=== PATIENT | female | born 1945 | race Caucasian/White ===

== ENCOUNTER → 2017-05-26 | Outpatient (CLI) | payer MEDICARE, OTHER ==
--- NOTE | 2017-05-27 06:35 | MR ---
EXAMINATION TYPE: MR brain wo con DATE OF EXAM: 05/26/2017 COMPARISON: NONE HISTORY: Seizure / Stroke per order. History of prior surgery and dizziness or hearing loss per patie nt. TECHNIQUE: Multiplanar, multisequence imaging of the brain and brainstem is performed without IV cont rast. FINDINGS: Diffusion weighted images demonstrate no evidence of a recent infarct or other diffusion abnormality. There is no worrisome extra-axial fluid collection. There is ventricular and sulcal prominence consis tent with diffuse cerebral atrophy. There is old area of encephalomalacia high left parietal region n ear site of artifact from suspected craniotomy surgery. There are T2 hyperintensities within the deep and more prominent in the periventricular white matter is likely on basis of product of chronic smal l vessel ischemic change. There is additional artifact left cerebellar level presumed postsurgical. Midline structures demonstrate normal morphology. The craniocervical junction appears within normal limits. T2 coronal weighted images show hippocampal gyri to appear symmetric and felt within normal limits. Normal vascular flow voids are present. The visualized sinuses are clear and the globes are i ntact. Oval 2.2 cm Lesion in the posterior right subcutaneous tissue coronal image 25 is presumed bonnie matologic in origin is only partially imaged. IMPRESSION: There is moderate diffuse cerebral atrophy and mild to moderate chronic small vessel isch emic change with left-sided surgical change and area of encephalomalacia left parietal region all farzana ntified.
== END | disposition home or self-care (01) ==
LOC: RADMRIMAIN 08:38
PROVIDERS: ATTEND Nurse Practitioner Acute Care
DX: G31.9 Degenerative disease of nervous system, unspecified (principal); I63.9 Cerebral infarction, unspecified; G93.89 Other specified disorders of brain
CPT/HCPCS: 70551

== ENCOUNTER → 2019-10-16 | Outpatient (CLI) | payer MEDICARE, OTHER | END | disposition home or self-care (01) | LOC: RADMRIMAIN 15:13 | PROVIDERS: ATTEND Nurse Practitioner Acute Care | DX: Z53.9 Procedure and treatment not carried out, unspecified reason (principal) ==

== ENCOUNTER 2020-05-05 02:19 | Inpatient (IN) | payer MEDICARE, OTHER ==
[2020-05-05] MEDS ORDERED: HYDROcodone/APAP 10-325MG 1 EACH TAB PO ONE (02:32)
--- NOTE | 2020-05-05 02:38 | ED ---
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 She is sent here from her long-term care facility after she was found to have pulse oximetry readings in the 70s. The patient had been diagnosed with covid infection. She is not usually on oxygen at baseline, they did call EMS who placed her on the nasal cannula and her saturations did improve during transport here. When I interview the patient, she denies having any dyspnea. She denies cough. She does request a pain pill for pain on her right side and states that this is chronic pain. She states that she has had pain pumps implanted in her abdomen to deal with this chronic pain but she still has breakthroughs. She denies any new pains. MD Complaint: shortness of breath -: unknown Consistency: constant Improves With: nothing Worsens With: nothing Known History Of: other (Coronavirus infection) Treatments Prior to Arrival: oxygen - Related Data Home Oxygen Therapy: No Home Medications Medication Instructions Recorded Confirmed ALPRAZolam [Xanax] 0.125 mg PO DAILY 05/05/20 05/05/20 Acetaminophen [Tylenol] 650 mg PO Q4H PRN 05/05/20 05/05/20 Aspirin 81 mg PO DAILY 05/05/20 05/05/20 Baclofen 10 mg PO TID 05/05/20 05/05/20 Carboxymethylcellulose Sodium 2 drops BOTH EYES TID 05/05/20 05/05/20 [Restore Plus] DULoxetine HCL [Cymbalta] 30 mg PO DAILY 05/05/20 05/05/20 Eucerin Lotion(Emollient) 1 applic TOPICAL DAILY PRN 05/05/20 05/05/20 Furosemide [Lasix] 20 mg PO DAILY 05/05/20 05/05/20 Gabapentin [Neurontin] 400 mg PO TID 05/05/20 05/05/20 HYDROcodone/APAP 10-325MG [[place] 1 tab PO QID 05/05/20 05/05/20 10-325] Ipratropium-Albuterol Nebulize 3 ml INHALATION RT-QID PRN 05/05/20 05/05/20 [Duoneb 0.5 mg-3 mg/3 ml Soln] Lacosamide [Vimpat] 100 mg PO BID 05/05/20 05/05/20 Menthol [Biofreeze] 1 applic TOPICAL HS 05/05/20 05/05/20 Morphine Sulfate ER [Ms Contin] 15 mg PO BID 05/05/20 05/05/20 Potassium Chloride ER [K-Dur 20] 20 meq PO DAILY 05/05/20 05/05/20 Pravastatin Sodium [Pravachol] 20 mg PO HS 05/05/20 05/05/20 Sennosides [Senna] 17.2 mg PO HS 05/05/20 05/05/20 Sodium Chloride Tab 1 gm PO BID 05/05/20 05/05/20 bisacodyL [Bisacodyl] 10 mg RECTAL Q96D PRN 05/05/20 05/05/20 levETIRAcetam [Keppra] 500 mg PO Q12H 05/05/20 05/05/20 Allergies Allergy/AdvReac Type Severity Reaction Status Date / Time No Known Allergies Allergy Verified 05/05/20 06:15 Review of Systems ROS Statement: Those systems with pertinent positive or pertinent negative responses have been documented in the HPI. ROS Other: All systems not noted in ROS Statement are negative. Limitations: ROS unobtainable due to patients medical condition (Dementia versus delirium) Constitutional: Denies: weakness Eyes: Denies: vision change Respiratory: Reports: as per HPI, dyspnea. Denies: cough Cardiovascular: Denies: chest pain, palpitations Gastrointestinal: Denies: abdominal pain, vomiting Musculoskeletal: Reports: as per HPI, myalgia. Denies: back pain Skin: Denies: rash Neurological: Reports: weakness (Chronic right hemiplegia). Denies: headache General Exam General appearance: alert, in no apparent distress Head exam: Present: atraumatic, normocephalic Eye exam: Present: normal appearance. Absent: scleral icterus, conjunctival injection ENT exam: Present: normal oropharynx Neck exam: Present: normal inspection Respiratory exam: Present: rales. Absent: respiratory distress, wheezes, rhonchi, stridor Cardiovascular Exam: Present: regular rate, normal rhythm, systolic murmur (Patient has grade 4/6 systolic ejection murmur). Absent: diastolic murmur, rubs, gallop GI/Abdominal exam: Present: soft, other (Patient has palpable pain pump in the left lower quadrant and right lower quadrant.). Absent: distended, tenderness, guarding, rebound Extremities exam: Present: normal capillary refill, other (Flexion contracture to the right upper extremity. Extension contracture to right lower extremity). Absent: pedal edema, calf tenderness Neurological exam: Present: alert, CN II-XII intact, motor sensory deficit (Right sided hemiplegia). Absent: oriented X3 Skin exam: Present: warm, dry, intact, normal color. Absent: rash Course Vital Signs 05/05/20 05/05/20 05/05/20 02:31 03:33 04:00 Temperature 98.5 F 98.7 F Pulse Rate 80 77 77 Respiratory 18 24 22 Rate Blood Pressure 97/72 87/46 95/50 O2 Sat by Pulse 98 97 97 Oximetry 05/05/20 05/05/20 05/05/20 04:10 05:00 06:00 Temperature Pulse Rate 87 69 88 Respiratory 20 22 20 Rate Blood Pressure 95/50 101/47 103/44 O2 Sat by Pulse 97 97 Oximetry Medical Decision Making - Medical Decision Making Patient is a 74-year-old woman sent from the long-term care facility after she had been found to have low pulse ox readings on room air. Her readings have improved with the cannula. Case is discussed with the MH group, covering admissions tonight. Patient started on dexamethasone and will be admitted for supplemental oxygen. The skilled nursing paperwork does include DO NOT RESUSCITATE order - Lab Data Result diagrams: 05/05/20 02:47 05/05/20 02:47 Lab Results 05/05/20 05/05/20 05/05/20 Range/Units 02:47 02:47 02:47 WBC 3.5 L (3.8-10.6) k/uL RBC 3.62 L (3.80-5.40) m/uL Hgb 11.9 (11.4-16.0) gm/dL Hct 34.3 (34.0-46.0) % MCV 94.5 (80.0-100.0) fL MCH 32.9 (25.0-35.0) pg MCHC 34.8 (31.0-37.0) g/dL RDW 12.9 (11.5-15.5) % Plt Count 142 L (150-450) k/uL MPV 7.6 Neutrophils % 70 % Lymphocytes % 22 % Monocytes % 4 % Eosinophils % 2 % Basophils % 2 % Neutrophils # 2.5 (1.3-7.7) k/uL Lymphocytes # 0.8 L (1.0-4.8) k/uL Monocytes # 0.1 (0-1.0) k/uL Eosinophils # 0.1 (0-0.7) k/uL Basophils # 0.1 (0-0.2) k/uL PT 10.2 (9.0-12.0) sec INR 1.0 (<1.2) APTT 25.6 (22.0-30.0) sec D-Dimer 0.25 (<0.60) mg/L FEU Sodium 133 L (137-145) mmol/L Potassium 4.0 (3.5-5.1) mmol/L Chloride 104 (98-107) mmol/L Carbon Dioxide 25 (22-30) mmol/L Anion Gap 4 mmol/L BUN 11 (7-17) mg/dL Creatinine 0.85 (0.52-1.04) mg/dL Est GFR (CKD-EPI)AfAm 79 (>60 ml/min/1.73 sqM) Est GFR (CKD-EPI)NonAf 68 (>60 ml/min/1.73 sqM) Glucose 91 (74-99) mg/dL Plasma Lactic Acid Sincere (0.7-2.0) mmol/L Calcium 7.8 L (8.4-10.2) mg/dL Magnesium 1.9 (1.6-2.3) mg/dL Total Bilirubin 0.4 (0.2-1.3) mg/dL AST 88 H (14-36) U/L ALT 32 (4-34) U/L Alkaline Phosphatase 79 (38-126) U/L Lactate Dehydrogenase 645 H (313-618) U/L C-Reactive Protein 48.1 H (<10.0) mg/L Total Protein 5.3 L (6.3-8.2) g/dL Albumin 2.7 L (3.5-5.0) g/dL 01/04/21 Range/Units 02:47 WBC (3.8-10.6) k/uL RBC (3.80-5.40) m/uL Hgb (11.4-16.0) gm/dL Hct (34.0-46.0) % MCV (80.0-100.0) fL MCH (25.0-35.0) pg MCHC (31.0-37.0) g/dL RDW (11.5-15.5) % Plt Count (150-450) k/uL MPV Neutrophils % % Lymphocytes % % Monocytes % % Eosinophils % % Basophils % % Neutrophils # (1.3-7.7) k/uL Lymphocytes # (1.0-4.8) k/uL Monocytes # (0-1.0) k/uL Eosinophils # (0-0.7) k/uL Basophils # (0-0.2) k/uL PT (9.0-12.0) sec INR (<1.2) APTT (22.0-30.0) sec D-Dimer (<0.60) mg/L FEU Sodium (137-145) mmol/L Potassium (3.5-5.1) mmol/L Chloride (98-107) mmol/L Carbon Dioxide (22-30) mmol/L Anion Gap mmol/L BUN (7-17) mg/dL Creatinine (0.52-1.04) mg/dL Est GFR (CKD-EPI)AfAm (>60 ml/min/1.73 sqM) Est GFR (CKD-EPI)NonAf (>60 ml/min/1.73 sqM) Glucose (74-99) mg/dL Plasma Lactic Acid Sincere 0.6 L (0.7-2.0) mmol/L Calcium (8.4-10.2) mg/dL Magnesium (1.6-2.3) mg/dL Total Bilirubin (0.2-1.3) mg/dL AST (14-36) U/L ALT (4-34) U/L Alkaline Phosphatase (38-126) U/L Lactate Dehydrogenase (313-618) U/L C-Reactive Protein (<10.0) mg/L Total Protein (6.3-8.2) g/dL Albumin (3.5-5.0) g/dL - EKG Data -: EKG Interpreted by Me EKG shows normal: sinus rhythm, axis (Normal), intervals (Normal), QRS complexes (Normal) Rate: normal (Rate 78 bpm) Interpretation: nonspecific ST-T wave changes Disposition Clinical Impression: COVID-19 virus infection Disposition: ADMITTED IP TO THIS HOSP Condition: Poor Is patient prescribed a controlled substance at d/c from ED?: No
[2020-05-05] MEDS: DEXAMETHASONE SOD PHOSPHATE 10 MG/ML 1 ML VIAL IV SCH (02:54)
[2020-05-05 02:56] LABS: Basophils # (A) 0.1 k/uL (0-0.2); Basophils % (A) 2 %; Eosinophils # (A) 0.1 k/uL (0-0.7); Eosinophils % (A) 2 %; HCT 34.3 % (34.0-46.0); HGB 11.9 gm/dL (11.4-16.0); Lymphocytes # (A) 0.8 k/uL (1.0-4.8); Lymphocytes % (A) 22 %; MCH 32.9 pg (25.0-35.0); MCHC 34.8 g/dL (31.0-37.0); MCV 94.5 fL (80.0-100.0); Mean Platelet Volume 7.6; Monocytes # (A) 0.1 k/uL (0-1.0); Monocytes % (A) 4 %; Neutrophils # (A) 2.5 k/uL (1.3-7.7); Neutrophils % (A) 70 %; Platelet Count 142 k/uL (150-450); RBC 3.62 m/uL (3.80-5.40); RDW 12.9 % (11.5-15.5); WBC 3.5 k/uL (3.8-10.6)
[2020-05-05 03:08] LABS: Albumin 2.7 g/dL (3.5-5.0); C Reactive Protein 48.1 mg/L (<10.0); Calcium 7.8 mg/dL (8.4-10.2); Magnesium 1.9 mg/dL (1.6-2.3); Total Bilirubin 0.4 mg/dL (0.2-1.3); Total Protein 5.3 g/dL (6.3-8.2)
[2020-05-05 03:11] LABS: D-Dimer 0.25 mg/L FEU (<0.60); Partial Thromboplastin Time 25.6 sec (22.0-30.0); Prothrombin Time 10.2 sec (9.0-12.0)
--- NOTE | 2020-05-05 03:21 | XR ---
EXAM: XR Chest, 1 View CLINICAL HISTORY: ITS.REASON XR Reason: Suspected COVID-19 pneumonia TECHNIQUE: Frontal view of the chest. COMPARISON: none available FINDINGS: Lungs: Hazy left upper lobe opacity. Low lung volumes. Pleural space: Unremarkable. No pneumothorax. Heart: Unremarkable. No cardiomegaly. Mediastinum: Examination is slightly limited due to rotation. Calcified aortic arch and descending thoracic aorta. Bones/joints: Unremarkable. IMPRESSION: Hazy left upper lobe opacity which may be due to pneumonia in the appropriate clinical setting. No pleural effusions or pneumothorax.
[2020-05-05] MEDS ORDERED: SODIUM CHLORIDE 0.9% 1,000 ML IV STA (04:18)
[2020-05-05] MEDS ORDERED: SODIUM CHLORIDE 0.9% 1,000 ML IV ONE (04:18)
[2020-05-05] MEDS ORDERED: NALOXONE 0.4 MG/ML 1 ML VIAL IV PRN (05:49)
[2020-05-05] MEDS ORDERED: SODIUM CHLORIDE 0.9% 1,000 ML IV SCH (06:00)
[2020-05-05] MEDS ORDERED: HEPARIN SODIUM,PORCINE 5,000 UNIT/ML 1 ML VIAL SQ SCH (09:00)
[2020-05-05] MEDS ORDERED: ACETAMINOPHEN TAB 325 MG TAB PO PRN (09:40)
[2020-05-05] MEDS ORDERED: bisacodyL 10 MG SUPP RECTAL PRN (09:40)
[2020-05-05] MEDS ORDERED: EUCERIN TOPICAL PRN (09:40)
[2020-05-05] MEDS ORDERED: FUROSEMIDE 20 MG TAB PO SCH (09:45)
[2020-05-05] MEDS: ALPRAZolam 0.25 MG TAB PO SCH (11:09)
--- NOTE | 2020-05-05 12:11 | P.HPIM ---
History of Present Illness Patient is an 74-year-old female admitted for acute hypoxic respiratory failure, secondary to covid 19, patient is a poor historian unable to tell me when she was diagnosed with the Covid. As per the patient patient symptoms has been going on for couple weeks although she is not a reliable historian patient oxygen saturation found to be in 70s was subsequently sent to ER patient was started on Decadron patient denied any shortness of breath denied any significant cough body aches. Patient doesn't have any fever patient is bit hyponatremic for started on IV fluids patient LDH is 645, d-dimer is within normal limits Review of Systems REVIEW OF SYSTEMS: CONSTITUTIONAL: No fever, no malaise, no fatigue. HEENT: No recent visual problems or hearing problems. Denied any sore throat. CARDIOVASCULAR: No chest pain, orthopnea, PND, no palpitations, no syncope. PULMONARY: No shortness of breath, no cough, no hemoptysis. GASTROINTESTINAL: No diarrhea, no nausea, no vomiting, no abdominal pain. NEUROLOGICAL: No headaches, no weakness, no numbness. HEMATOLOGICAL: Denies any bleeding or petechiae. GENITOURINARY: Denies any burning micturition, frequency, or urgency. MUSCULOSKELETAL/RHEUMATOLOGICAL: Denies any joint pain, swelling, or any muscle pain. ENDOCRINE: Denies any polyuria or polydipsia. The rest of the 14-point review of systems is negative. Past Medical History Past Medical History: CVA/TIA, Hypertension History of Any Multi-Drug Resistant Organisms: Unobtainable Past Surgical History: Unable to Obtain Past Psychological History: Unable to Obtain Smoking Status: Former smoker Past Alcohol Use History: None Reported Past Drug Use History: None Reported Medications and Allergies Home Medications Medication Instructions Recorded Confirmed Type ALPRAZolam [Xanax] 0.125 mg PO DAILY 05/05/20 05/05/20 History Acetaminophen [Tylenol] 650 mg PO Q4H PRN 05/05/20 05/05/20 History Aspirin 81 mg PO DAILY 05/05/20 05/05/20 History Baclofen 10 mg PO TID 05/05/20 05/05/20 History Carboxymethylcellulose Sodium 2 drops BOTH EYES TID 05/05/20 05/05/20 History [Restore Plus] DULoxetine HCL [Cymbalta] 30 mg PO DAILY 05/05/20 05/05/20 History Eucerin Lotion(Emollient) 1 applic TOPICAL DAILY PRN 05/05/20 05/05/20 History Furosemide [Lasix] 20 mg PO DAILY 05/05/20 05/05/20 History Gabapentin [Neurontin] 400 mg PO TID 05/05/20 05/05/20 History HYDROcodone/APAP 10-325MG [[place] 1 tab PO QID 05/05/20 05/05/20 History 10-325] Ipratropium-Albuterol Nebulize 3 ml INHALATION RT-QID PRN 05/05/20 05/05/20 History [Duoneb 0.5 mg-3 mg/3 ml Soln] Lacosamide [Vimpat] 100 mg PO BID 05/05/20 05/05/20 History Menthol [Biofreeze] 1 applic TOPICAL HS 05/05/20 05/05/20 History Morphine Sulfate ER [Ms Contin] 15 mg PO BID 05/05/20 05/05/20 History Potassium Chloride ER [K-Dur 20] 20 meq PO DAILY 05/05/20 05/05/20 History Pravastatin Sodium [Pravachol] 20 mg PO HS 05/05/20 05/05/20 History Sennosides [Senna] 17.2 mg PO HS 05/05/20 05/05/20 History Sodium Chloride Tab 1 gm PO BID 05/05/20 05/05/20 History bisacodyL [Bisacodyl] 10 mg RECTAL Q96D PRN 05/05/20 05/05/20 History levETIRAcetam [Keppra] 500 mg PO Q12H 05/05/20 05/05/20 History Allergies Allergy/AdvReac Type Severity Reaction Status Date / Time No Known Allergies Allergy Verified 05/05/20 06:15 Physical Exam Vitals: Vital Signs Temp Pulse Pulse Resp BP BP Pulse Ox 05/05/20 07:07 97.8 F 84 20 109/59 05/05/20 06:00 88 20 103/44 97 05/05/20 05:00 69 22 101/47 97 05/05/20 04:10 87 20 95/50 05/05/20 04:00 98.7 F 77 22 95/50 97 05/05/20 03:33 77 24 87/46 97 05/05/20 02:31 98.5 F 80 18 97/72 98 Intake and Output 05/04/20 05/05/20 05/05/20 22:59 06:59 14:59 Other: # Bowel Movements 1 Weight 90.718 kg 90.718 kg PHYSICAL EXAMINATION: GENERAL: The patient is alert and oriented x2-3, not in any acute distress. Well developed, well nourished. HEENT: Pupils are round and equally reacting to light. EOMI. No scleral icterus. No conjunctival pallor. Normocephalic, atraumatic. No pharyngeal erythema. No thyromegaly. CARDIOVASCULAR: S1 and S2 present. No murmurs, rubs, or gallops. PULMONARY: Chest is clear to auscultation, no wheezing or crackles. ABDOMEN: Soft, nontender, nondistended, normoactive bowel sounds. No palpable organomegaly. MUSCULOSKELETAL: No joint swelling or deformity. EXTREMITIES: No cyanosis, clubbing, or pedal edema. NEUROLOGICAL: Gross neurological examination did not reveal any new focal deficits. Does have weakness in the right side with right-sided facial droop which appears to be from her previous stroke SKIN: No rashes. Results CBC & Chem 7: 05/05/20 02:47 05/05/20 02:47 Labs: Abnormal Lab Results - Last 24 Hours (Table) 05/05/20 05/05/20 05/05/20 Range/Units 02:47 02:47 02:47 WBC 3.5 L (3.8-10.6) k/uL RBC 3.62 L (3.80-5.40) m/uL Plt Count 142 L (150-450) k/uL Lymphocytes # 0.8 L (1.0-4.8) k/uL Sodium 133 L (137-145) mmol/L Plasma Lactic Acid Sincere 0.6 L (0.7-2.0) mmol/L Calcium 7.8 L (8.4-10.2) mg/dL Ferritin 780.0 H (10.0-291.0) ng/mL AST 88 H (14-36) U/L Lactate Dehydrogenase 645 H (313-618) U/L C-Reactive Protein 48.1 H (<10.0) mg/L Total Protein 5.3 L (6.3-8.2) g/dL Albumin 2.7 L (3.5-5.0) g/dL Procalcitonin (0.02-0.09) ng/mL 05/05/20 Range/Units 02:47 WBC (3.8-10.6) k/uL RBC (3.80-5.40) m/uL Plt Count (150-450) k/uL Lymphocytes # (1.0-4.8) k/uL Sodium (137-145) mmol/L Plasma Lactic Acid Sincere (0.7-2.0) mmol/L Calcium (8.4-10.2) mg/dL Ferritin (10.0-291.0) ng/mL AST (14-36) U/L Lactate Dehydrogenase (313-618) U/L C-Reactive Protein (<10.0) mg/L Total Protein (6.3-8.2) g/dL Albumin (3.5-5.0) g/dL Procalcitonin 0.45 H (0.02-0.09) ng/mL Assessment and Plan Plan: -Acute hypoxic respiratory failure: Secondary to Covid 19, patient will be continued on Decadron, unsure whether patient will be a candidate for Remdesivir as her duration of symptoms is not clear. Although patient may be a candidate for plasma. Pulmonary will be consulted. -Hypovolemic hyponatremia: Continue with IV fluids. Hold off on Lasix. -CVA in the past: Patient does have weakness in the right side. Continue with aspirin and statin -Seizure disorder continue with Vimpat and Keppra. -Depression -DVT prophylaxis with Lovenox
--- NOTE | 2020-05-05 12:58 | P.CNPUL ---
History of Present Illness Consult date: 05/05/20 Requesting physician: Abbie Timmons Reason for consult: hypoxemia (Hypoxia) Chief complaint: Hypoxia History of present illness: 74-year-old white female patient, resident of a local long-term care facility, [facility], who is a poor historian with previous history of dementia, history of CVA, hypertension, former smoker, gait dysfunction, and patient is chronically bedbound, who was brought into the hospital on 05/05/2020 for evaluation of hypoxemia. Apparently patient was recently diagnosed with the cold infection. She had pulse oximetry readings in the 70s. EMS was called, and supplemental oxygen was placed on the patient. Patient is a poor historian, however she denies being short of breath, she denies any cough, fever or chills. She is not able to tell us alone she had not been feeling well. He is not able to tell us when she was tested for the cold infection. Chest x-ray in the emergency department showed hazy left upper lobe opacity. Her lab data showed a white blood cell, 3.5, hemoglobin of 11.9, lymphocyte, 0.8, d-dimer was negative at 0.25, INR was 1, sodium was 133, progressive electrolytes and renal profile were within normal limits, plasma lactic acid 0.6, ferritin level was 780, AST was 88, ALT was 32 alkaline phosphatase was 79, LDH 645, CRP was 48.1, pro calcitonin level was 0.45. Currently the patient is on 5 L of oxygen her pulse ox is 94%, she is resting comfortably in bed, she is able to provide simple answers, she did not know she was in the hospital, but she denies any acute distress. She is afebrile, hemodynamically patient is stable. Denies any nausea or vomiting. She was given a liter bolus in the emergency department, she has IV fluids infusing at 75 ML per hour, she was started on oral dexamethasone 6 mg IV daily, and Lovenox at prophylactic dose of 40 mg once daily Review of Systems All systems: negative Constitutional: Denies chills, Denies fever Eyes: denies blurred vision, denies pain Ears, nose, mouth and throat: Denies headache, Denies sore throat Cardiovascular: Denies chest pain, Denies shortness of breath Respiratory: Denies cough Gastrointestinal: Denies abdominal pain, Denies diarrhea, Denies nausea, Denies vomiting Genitourinary: Denies dysuria, Denies hematuria Musculoskeletal: Denies myalgias Integumentary: Denies pruritus, Denies rash Neurological: Denies numbness, Denies weakness Psychiatric: Denies anxiety, Denies depression Endocrine: Denies fatigue, Denies weight change Past Medical History Past Medical History: CVA/TIA, Hypertension History of Any Multi-Drug Resistant Organisms: Unobtainable Past Surgical History: Unable to Obtain Past Psychological History: Unable to Obtain Smoking Status: Former smoker Past Alcohol Use History: None Reported Past Drug Use History: None Reported Medications and Allergies Home Medications Medication Instructions Recorded Confirmed Type ALPRAZolam [Xanax] 0.125 mg PO DAILY 05/05/20 05/05/20 History Acetaminophen [Tylenol] 650 mg PO Q4H PRN 05/05/20 05/05/20 History Aspirin 81 mg PO DAILY 05/05/20 05/05/20 History Baclofen 10 mg PO TID 05/05/20 05/05/20 History Carboxymethylcellulose Sodium 2 drops BOTH EYES TID 05/05/20 05/05/20 History [Restore Plus] DULoxetine HCL [Cymbalta] 30 mg PO DAILY 05/05/20 05/05/20 History Eucerin Lotion(Emollient) 1 applic TOPICAL DAILY PRN 05/05/20 05/05/20 History Furosemide [Lasix] 20 mg PO DAILY 05/05/20 05/05/20 History Gabapentin [Neurontin] 400 mg PO TID 05/05/20 05/05/20 History HYDROcodone/APAP 10-325MG [[facility] 1 tab PO QID 05/05/20 05/05/20 History 10-325] Ipratropium-Albuterol Nebulize 3 ml INHALATION RT-QID PRN 05/05/20 05/05/20 History [Duoneb 0.5 mg-3 mg/3 ml Soln] Lacosamide [Vimpat] 100 mg PO BID 05/05/20 05/05/20 History Menthol [Biofreeze] 1 applic TOPICAL HS 05/05/20 05/05/20 History Morphine Sulfate ER [Ms Contin] 15 mg PO BID 05/05/20 05/05/20 History Potassium Chloride ER [K-Dur 20] 20 meq PO DAILY 05/05/20 05/05/20 History Pravastatin Sodium [Pravachol] 20 mg PO HS 05/05/20 05/05/20 History Sennosides [Senna] 17.2 mg PO HS 05/05/20 05/05/20 History Sodium Chloride Tab 1 gm PO BID 05/05/20 05/05/20 History bisacodyL [Bisacodyl] 10 mg RECTAL Q96D PRN 05/05/20 05/05/20 History levETIRAcetam [Keppra] 500 mg PO Q12H 05/05/20 05/05/20 History Allergies Allergy/AdvReac Type Severity Reaction Status Date / Time No Known Allergies Allergy Verified 05/05/20 06:15 Physical Exam Vitals: Vital Signs Temp Pulse Pulse Pulse Resp BP BP 05/05/20 08:00 97.7 F 78 18 123/72 05/05/20 07:07 97.8 F 84 20 109/59 05/05/20 06:00 88 20 103/44 05/05/20 05:00 69 22 101/47 05/05/20 04:10 87 20 95/50 05/05/20 04:00 98.7 F 77 22 95/50 05/05/20 03:33 77 24 87/46 05/05/20 02:31 98.5 F 80 18 97/72 Pulse Ox 05/05/20 08:00 94 L 05/05/20 07:07 05/05/20 06:00 97 05/05/20 05:00 97 05/05/20 04:10 05/05/20 04:00 97 05/05/20 03:33 97 05/05/20 02:31 98 Intake and Output 05/04/20 05/05/20 05/05/20 22:59 06:59 14:59 Other: # Bowel Movements 1 Weight 90.718 kg 90.718 kg GENERAL EXAM: Alert, pleasantly confused, 74-year-old white female, on 5 L of oxygen and the pulse ox 94%, resting comfortably in bed appears to be in no acute distress HEAD: Normocephalic/atraumatic. EYES: Normal reaction of pupils, equal size. Conjunctiva pink, sclera white. NOSE: Clear with pink turbinates. THROAT: No erythema or exudates. NECK: No masses, no JVD, no thyroid enlargement, no adenopathy. CHEST: No chest wall deformity. Symmetrical expansion. LUNGS: Equal air entry with no crackles, wheeze, rhonchi or dullness. CVS: Regular rate and rhythm, normal S1 and S2, no gallops, no murmurs, no rubs ABDOMEN: Soft, nontender. No hepatosplenomegaly, normal bowel sounds, no guarding or rigidity. EXTREMITIES: No clubbing, no edema, no cyanosis, 2+ pulses and upper and lower extremities. MUSCULOSKELETAL: Muscle strength and tone normal. SPINE: No scoliosis or deformity SKIN: No rashes CENTRAL NERVOUS SYSTEM: Alert and oriented -1. No focal deficits, tone is normal in all 4 extremities. PSYCHIATRIC: Alert and oriented -1. Appropriate affect. Intact judgment and insight. Results - Laboratory Findings CBC and BMP: 05/05/20 02:47 05/05/20 02:47 PT/INR, D-dimer PT 10.2 sec (9.0-12.0) 05/05/20 02:47 INR 1.0 (<1.2) 05/05/20 02:47 D-Dimer 0.25 mg/L FEU (<0.60) 05/05/20 02:47 Abnormal lab findings: Abnormal Labs 05/05/20 05/05/20 05/05/20 02:47 02:47 02:47 WBC 3.5 L RBC 3.62 L Plt Count 142 L Lymphocytes # 0.8 L Sodium 133 L Plasma Lactic Acid Sincere 0.6 L Calcium 7.8 L Ferritin 780.0 H AST 88 H Lactate Dehydrogenase 645 H C-Reactive Protein 48.1 H Total Protein 5.3 L Albumin 2.7 L Procalcitonin 05/05/20 02:47 WBC RBC Plt Count Lymphocytes # Sodium Plasma Lactic Acid Sincere Calcium Ferritin AST Lactate Dehydrogenase C-Reactive Protein Total Protein Albumin Procalcitonin 0.45 H - Diagnostic Findings Chest x-ray: report reviewed, image reviewed Additional studies: EKG reviewed Assessment and Plan Plan: Assessment: #1. Acute hypoxic respiratory failure related to COVID 19 pneumonia, the duration of her symptoms is not clear #2. Mildly elevated inflammatory markers related to COVID 19 infection #3. History of dementia #4. History of previous CVA #5. Medical debility, gait dysfunction, patient is chronically bedbound #6. [facility] #7. Hypertension #8. History of smoking, currently in remission #9. Chronic pain, patient has a pain pump inserted Plan: Continue with conservative treatment for COVID 19, duration of patient's symptoms is not clear, continue with the Decadron, continue prophylactic dose of Lovenox, we will add vitamin C, vitamin D, zinc. We'll continue to follow I performed a history & physical examination of the patient and discussed their management with my nurse practitioner, Nadja Luis. I reviewed the nurse practitioner's note and agree with the documented findings and plan of care. Lung sounds are positive for diminished breath sounds at the bases. The findings and the impression was discussed with the patient. I attest to the documentation by the nurse practitioner. Time with Patient: Greater than 30
[2020-05-05] MEDS: levETIRAcetam 500 MG TAB PO SCH ×2 (13:31→22:04)
[2020-05-05] MEDS: DULoxetine HCL 30 MG CAPSULE.DR PO SCH (13:31)
[2020-05-05] MEDS: SODIUM CHLORIDE 0.9% 1,000 ML IV SCH (13:31)
[2020-05-05] MEDS: ASPIRIN 81 MG PO SCH (13:31)
[2020-05-05] MEDS: GABAPENTIN 400 MG CAP PO SCH ×2 (16:54→22:02)
[2020-05-05] MEDS: BACLOFEN 10 MG TAB PO SCH ×2 (16:55→22:03)
[2020-05-05] MEDS: ARTIFICIAL TEARS-HYPROMELLOSE DROPS 15 ML BTL BOTH EYES SCH ×2 (17:01→22:04)
[2020-05-05] MEDS: HYDROcodone/APAP 10-325MG 1 EACH TAB PO SCH (22:02)
[2020-05-05] MEDS: ASCORBIC ACID 500 MG TAB PO SCH (22:02)
[2020-05-05] MEDS: SENNOSIDES 8.6 MG TAB PO SCH (22:03)
[2020-05-05] MEDS: LACOSAMIDE 50 MG TABLET PO SCH (22:03)
[2020-05-05] MEDS: PRAVASTATIN SODIUM 20 MG TAB PO SCH (22:04)
[2020-05-05] MEDS: SODIUM CHLORIDE TAB 1 GM TAB PO SCH (22:04)
[2020-05-05] MEDS: METHYL SALICYLATE/MENTHOL CREAM 5 OZ TOPICAL SCH (22:05)
[2020-05-06] MEDS: SODIUM CHLORIDE 0.9% 1,000 ML IV SCH ×2 (00:31→11:54)
[2020-05-06] MEDS: SODIUM CHLORIDE TAB 1 GM TAB PO SCH ×2 (07:35→21:44)
[2020-05-06] MEDS: GABAPENTIN 400 MG CAP PO SCH ×3 (07:36→21:43)
[2020-05-06] MEDS: BACLOFEN 10 MG TAB PO SCH ×3 (07:36→21:43)
[2020-05-06] MEDS: ALPRAZolam 0.25 MG TAB PO SCH (07:36)
[2020-05-06] MEDS: HYDROcodone/APAP 10-325MG 1 EACH TAB PO SCH ×2 (07:37→21:43)
[2020-05-06] MEDS: ASPIRIN 81 MG PO SCH (07:37)
[2020-05-06] MEDS: levETIRAcetam 500 MG TAB PO SCH ×2 (07:37→21:43)
[2020-05-06] MEDS: LACOSAMIDE 50 MG TABLET PO SCH ×2 (07:37→21:43)
[2020-05-06] MEDS: ENOXAPARIN 40 MG/0.4 ML SYRINGE SQ SCH (07:39)
[2020-05-06] MEDS: DEXAMETHASONE SOD PHOSPHATE 10 MG/ML 1 ML VIAL IV SCH (07:39)
[2020-05-06] MEDS: ASCORBIC ACID 500 MG TAB PO SCH ×2 (07:40→21:43)
[2020-05-06] MEDS: CHOLECALCIFEROL 400 UNIT TAB PO SCH (07:40)
[2020-05-06] MEDS: DULoxetine HCL 30 MG CAPSULE.DR PO SCH (07:40)
[2020-05-06] MEDS: ZINC SULFATE 220 MG CAP PO SCH (07:40)
[2020-05-06] MEDS: ARTIFICIAL TEARS-HYPROMELLOSE DROPS 15 ML BTL BOTH EYES SCH ×3 (07:41→21:44)
[2020-05-06] MEDS ORDERED: POTASSIUM CHLORIDE ER 20 MEQ TAB.ER PO SCH (09:00)
--- NOTE | 2020-05-06 13:41 | P.PN ---
Subjective Progress Note Date: 05/06/20 Principal diagnosis: Hypoxemia 74-year-old white female patient, resident of a local long-term care facility, [facility], who is a poor historian with previous history of dementia, history of CVA, hypertension, former smoker, gait dysfunction, and patient is chronically bedbound, who was brought into the hospital on 05/05/2020 for evaluation of hypoxemia. Apparently patient was recently diagnosed with the cold infection. She had pulse oximetry readings in the 70s. EMS was called, and supplemental oxygen was placed on the patient. Patient is a poor historian, however she denies being short of breath, she denies any cough, fever or chills. She is not able to tell us alone she had not been feeling well. He is not able to tell us when she was tested for the cold infection. Chest x-ray in the emergency department showed hazy left upper lobe opacity. Her lab data showed a white blood cell, 3.5, hemoglobin of 11.9, lymphocyte, 0.8, d-dimer was negative at 0.25, INR was 1, sodium was 133, progressive electrolytes and renal profile were within normal limits, plasma lactic acid 0.6, ferritin level was 780, AST was 88, ALT was 32 alkaline phosphatase was 79, LDH 645, CRP was 48.1, pro calcitonin level was 0.45. Currently the patient is on 5 L of oxygen her pulse ox is 94%, she is resting comfortably in bed, she is able to provide simple answers, she did not know she was in the hospital, but she denies any acute distress. She is afebrile, hemodynamically patient is stable. Denies any nausea or vomiting. She was given a liter bolus in the emergency department, she has IV fluids infusing at 75 ML per hour, she was started on oral dexamethasone 6 mg IV daily, and Lovenox at prophylactic dose of 40 mg once daily On 05/03/2020 patient seen in follow-up on medical floor, she is resting quietly in bed, she is a poor historian, she has a history of underlying dementia, but she seems to be breathing comfortably, she denies any specific complaints, she denied any shortness of breath or cough, no cognitive chest pain, she is currently on 5 L of oxygen the pulse ox of 90-92%, hemodynamically she is been stable, she's been afebrile, patient has been on IV steroids, prophylactic anticoagulation, and gentle IV hydration, and she reports feeling better, it was unclear the timeline of her symptom onset therefore patient was not a candidate for Remdesivir, she was treated conservatively with the steroids, and supplements. Doing well today Objective - Vital Signs Vital signs: Vital Signs Temp 98.3 F 05/06/20 11:00 Pulse 93 05/06/20 11:00 Resp 20 05/06/20 11:00 BP 149/82 05/06/20 11:00 Pulse Ox 90 L 05/06/20 11:00 Intake & Output 05/05/20 05/06/20 05/06/20 18:59 06:59 18:59 Intake Total 1260 360 Balance 1260 360 Weight 90.718 kg Intake: Intake, IV Titration 900 Amount Sodium Chloride 0.9% 1, 900 000 ml @ 75 mls/hr IV . [id number] [facility] Rx#:[id number] Oral 360 360 Other: Voiding Method Diaper Diaper Diaper Incontinent Incontinent Incontinent # Voids 4 3 # Bowel Movements 1 3 - Exam GENERAL EXAM: Alert, pleasantly confused, 74-year-old white female, on 5 L of oxygen and the pulse ox 94%, resting comfortably in bed appears to be in no acute distress HEAD: Normocephalic/atraumatic. EYES: Normal reaction of pupils, equal size. Conjunctiva pink, sclera white. NOSE: Clear with pink turbinates. THROAT: No erythema or exudates. NECK: No masses, no JVD, no thyroid enlargement, no adenopathy. CHEST: No chest wall deformity. Symmetrical expansion. LUNGS: Equal air entry with no crackles, wheeze, rhonchi or dullness. CVS: Regular rate and rhythm, normal S1 and S2, no gallops, no murmurs, no rubs ABDOMEN: Soft, nontender. No hepatosplenomegaly, normal bowel sounds, no guarding or rigidity. EXTREMITIES: No clubbing, no edema, no cyanosis, 2+ pulses and upper and lower extremities. MUSCULOSKELETAL: Muscle strength and tone normal. SPINE: No scoliosis or deformity SKIN: No rashes CENTRAL NERVOUS SYSTEM: Alert and oriented -1. No focal deficits, tone is normal in all 4 extremities. - Labs CBC & Chem 7: 05/05/20 02:47 05/05/20 02:47 Labs: Microbiology - Last 24 Hours (Table) 05/05/20 02:47 Blood Culture - Preliminary Blood No Growth after 24 hours 05/05/20 02:47 Blood Culture - Preliminary Blood No Growth after 24 hours Assessment and Plan Plan: Assessment: #1. Acute hypoxic respiratory failure related to COVID 19 pneumonia, the duration of her symptoms is not clear #2. Mildly elevated inflammatory markers related to COVID 19 infection #3. History of dementia #4. History of previous CVA #5. Medical debility, gait dysfunction, patient is chronically bedbound #6. Resident of the [facility] #7. Hypertension #8. History of smoking, currently in remission #9. Chronic pain, patient has a pain pump inserted Plan: Continue current medical treatment, including steroids, and vitamins, continue prophylactic anticoagulation, wean FiO2, noncompressive worsening symptoms, no complaints of dyspnea or cough, vital signs have been stable, continue to monitor the patient, follow-up chest x-ray in the morning, follow-up labs. We'll continue to follow I performed a history & physical examination of the patient and discussed their management with my nurse practitioner, Nadja Luis. I reviewed the nurse practitioner's note and agree with the documented findings and plan of care. Lung sounds are positive for diminished breath sounds at the bases. The f indings and the impression was discussed with the patient. I attest to the documentation by the nurse practitioner. Time with Patient: Less than 30
--- NOTE | 2020-05-06 16:21 | P.PN ---
Subjective Progress Note Date: 05/06/20 Patient is an 74-year-old female admitted for acute hypoxic respiratory failure, secondary to covid 19, patient is a poor historian unable to tell me when she was diagnosed with the Covid. As per the patient patient symptoms has been going on for couple weeks although she is not a reliable historian patient oxygen saturation found to be in 70s was subsequently sent to ER patient was started on Decadron patient denied any shortness of breath denied any significant cough body aches. Patient doesn't have any fever patient is bit hyponatremic for started on IV fluids patient LDH is 645, d-dimer is within normal limits 05/06/2020 Seen and evaluated and follow-up in his lethargic although arousable. She does fatigue easily. Patient states she is a resident at [facility]. Patient denies any worsening shortness of breath and is maintained on 5 L of oxygen via nasal cannula and is 90%. With nursing staff about weaning FiO2 as tolerated as patient was on 6 L earlier this morning. Patient to continue on dexamethasone along with Lovenox, zinc, vitamin supplements. Pulmonary is following as well. Will repeat a.m. labs is most recent sodium was 133, potassium is 4.0, creatinine was 0.85 and inflammatory markers were elevated. Review of systems: Constitutional: reports of fatigue Cardiovascular: No reports of chest pain or palpitations Respiratory: No reports of shortness of breath or cough GI: No reports of nausea, vomiting, or diarrhea : No reports of dysuria or retention Neurovascular: Reports generalized weakness All medications have been reviewed Objective - Vital Signs Vital signs: Vital Signs Temp 98.3 F 05/06/20 11:00 Pulse 93 05/06/20 11:00 Resp 20 05/06/20 11:00 BP 149/82 05/06/20 11:00 Pulse Ox 90 L 05/06/20 11:00 Intake & Output 05/05/20 05/06/20 05/06/20 18:59 06:59 18:59 Intake Total 1260 360 Balance 1260 360 Weight 90.718 kg Intake: Intake, IV Titration 900 Amount Sodium Chloride 0.9% 1, 900 000 ml @ 75 mls/hr IV . [id number] [facility] Rx#:[id number] Oral 360 360 Other: Voiding Method Diaper Diaper Diaper Incontinent Incontinent Incontinent # Voids 4 3 # Bowel Movements 1 3 - Exam GENERAL: The patient is alert and oriented x2-3, not in any acute distress. Well developed, well nourished. Lethargic although arousable HEENT: Pupils are round and equally reacting to light. EOMI. No scleral icterus. No conjunctival pallor. Normocephalic, atraumatic. No pharyngeal erythema. No thyromegaly. CARDIOVASCULAR: S1 and S2 present. No murmurs, rubs, or gallops. PULMONARY: Chest is clear to auscultation, no wheezing or crackles. ABDOMEN: Soft, nontender, nondistended, normoactive bowel sounds. No palpable organomegaly. MUSCULOSKELETAL: No joint swelling or deformity. EXTREMITIES: No cyanosis, clubbing, or pedal edema. NEUROLOGICAL: Gross neurological examination did not reveal any new focal deficits. Does have weakness in the right side with right-sided facial droop which appears to be from her previous stroke SKIN: No rashes. - Labs CBC & Chem 7: 05/05/20 02:47 05/05/20 02:47 Labs: Microbiology - Last 24 Hours (Table) 05/05/20 02:47 Blood Culture - Preliminary Blood No Growth after 24 hours 05/05/20 02:47 Blood Culture - Preliminary Blood No Growth after 24 hours Assessment and Plan Assessment: -Acute hypoxic respiratory failure: Secondary to Covid 19, patient will be continued on Decadron, unsure whether patient will be a candidate for Remdesivir as her duration of symptoms is not clear. Although patient may be a candidate for plasma. Pulmonary following and patient is maintained on dexamethasone along with Lovenox and vitamin C and D supplements and zinc -Hypovolemic hyponatremia: Continue with IV fluids. Hold off on Lasix. -CVA in the past: Patient does have weakness in the right side. Continue with aspirin and statin -Seizure disorder continue with Vimpat and Keppra. -Depression -DVT prophylaxis with Lovenox
[2020-05-06] MEDS: SENNOSIDES 8.6 MG TAB PO SCH (21:43)
[2020-05-06] MEDS: METHYL SALICYLATE/MENTHOL CREAM 5 OZ TOPICAL SCH (21:43)
[2020-05-06] MEDS: PRAVASTATIN SODIUM 20 MG TAB PO SCH (21:44)
[2020-05-07] MEDS: SODIUM CHLORIDE 0.9% 1,000 ML IV SCH (05:10)
[2020-05-07 06:21] LABS: Basophils % (A) 1 %; Eosinophils % (A) 0 %; HCT 39.6 % (34.0-46.0); HGB 13.3 gm/dL (11.4-16.0); Lymphocytes # (A) 0.5 k/uL (1.0-4.8); Lymphocytes % (A) 9 %; MCH 31.4 pg (25.0-35.0); MCHC 33.5 g/dL (31.0-37.0); MCV 93.7 fL (80.0-100.0); Mean Platelet Volume 7.7; Monocytes # (A) 0.3 k/uL (0-1.0); Monocytes % (A) 6 %; Neutrophils % (A) 84 %; Platelet Count 200 k/uL (150-450); RBC 4.23 m/uL (3.80-5.40); RDW 12.8 % (11.5-15.5); WBC 5.9 k/uL (3.8-10.6)
[2020-05-07] MEDS: ALPRAZolam 0.25 MG TAB PO SCH (07:45)
[2020-05-07] MEDS: ARTIFICIAL TEARS-HYPROMELLOSE DROPS 15 ML BTL BOTH EYES SCH ×2 (07:45→16:16)
[2020-05-07] MEDS: ASPIRIN 81 MG PO SCH (07:46)
[2020-05-07] MEDS: ASCORBIC ACID 500 MG TAB PO SCH ×2 (07:46→19:35)
[2020-05-07] MEDS: DEXAMETHASONE SOD PHOSPHATE 10 MG/ML 1 ML VIAL IV SCH (07:47)
[2020-05-07] MEDS: CHOLECALCIFEROL 400 UNIT TAB PO SCH (07:47)
[2020-05-07] MEDS: BACLOFEN 10 MG TAB PO SCH ×3 (07:47→20:37)
[2020-05-07] MEDS: DULoxetine HCL 30 MG CAPSULE.DR PO SCH (07:48)
[2020-05-07] MEDS: GABAPENTIN 400 MG CAP PO SCH ×3 (07:49→20:37)
[2020-05-07] MEDS: ENOXAPARIN 40 MG/0.4 ML SYRINGE SQ SCH (07:49)
[2020-05-07] MEDS: HYDROcodone/APAP 10-325MG 1 EACH TAB PO SCH ×2 (07:50→19:35)
[2020-05-07] MEDS: LACOSAMIDE 50 MG TABLET PO SCH ×2 (07:51→19:37)
[2020-05-07] MEDS: levETIRAcetam 500 MG TAB PO SCH ×2 (07:52→19:37)
[2020-05-07] MEDS: SODIUM CHLORIDE TAB 1 GM TAB PO SCH ×2 (07:52→19:35)
[2020-05-07] MEDS: ZINC SULFATE 220 MG CAP PO SCH (07:52)
--- NOTE | 2020-05-07 08:00 | XR ---
EXAMINATION TYPE: XR chest 1V portable DATE OF EXAM: 05/07/2020 COMPARISON: 05/05/2020 INDICATION: Covid 19 TECHNIQUE: Single frontal view of the chest is obtained. FINDINGS: The heart size is normal. The pulmonary vasculature is prominent. Mild diffuse increased lung markings are present. Some underlying punctate nodularity may be present. Continued follow-up is recommended. This appears stable from comparison. IMPRESSION: 1. Stable nonspecific increased lung markings. Continued follow-up is recommended.
[2020-05-07 11:10] LABS: Anion Gap 13.8 mmol/L (4.00-12.00); Calcium 8.2 mg/dL (8.7-10.3); Carbon Dioxide 19.2 mmol/L (21.6-31.8)
[2020-05-07 11:16] LABS: C Reactive Protein 5.3 mg/dL (0.0-0.8); Potassium 2.8 mmol/L (3.5-5.5)
[2020-05-07 12:16] LABS: African American GFR (CKD) 99.6 (60.0-200.0); BUN/Creat Ratio 11.43 Ratio (12.00-20.00)
--- NOTE | 2020-05-07 12:53 | P.PN ---
Subjective Progress Note Date: 05/07/20 Principal diagnosis: Hypoxemia 74-year-old white female patient, resident of a local long-term care facility, [facility], who is a poor historian with previous history of dementia, history of CVA, hypertension, former smoker, gait dysfunction, and patient is chronically bedbound, who was brought into the hospital on 05/05/2020 for evaluation of hypoxemia. Apparently patient was recently diagnosed with the cold infection. She had pulse oximetry readings in the 70s. EMS was called, and supplemental oxygen was placed on the patient. Patient is a poor historian, however she denies being short of breath, she denies any cough, fever or chills. She is not able to tell us alone she had not been feeling well. He is not able to tell us when she was tested for the cold infection. Chest x-ray in the emergency department showed hazy left upper lobe opacity. Her lab data showed a white blood cell, 3.5, hemoglobin of 11.9, lymphocyte, 0.8, d-dimer was negative at 0.25, INR was 1, sodium was 133, progressive electrolytes and renal profile were within normal limits, plasma lactic acid 0.6, ferritin level was 780, AST was 88, ALT was 32 alkaline phosphatase was 79, LDH 645, CRP was 48.1, pro calcitonin level was 0.45. Currently the patient is on 5 L of oxygen her pulse ox is 94%, she is resting comfortably in bed, she is able to provide simple answers, she did not know she was in the hospital, but she denies any acute distress. She is afebrile, hemodynamically patient is stable. Denies any nausea or vomiting. She was given a liter bolus in the emergency department, she has IV fluids infusing at 75 ML per hour, she was started on oral dexamethasone 6 mg IV daily, and Lovenox at prophylactic dose of 40 mg once daily On 05/03/2020 patient seen in follow-up on medical floor, she is resting quietly in bed, she is a poor historian, she has a history of underlying dementia, but she seems to be breathing comfortably, she denies any specific complaints, she denied any shortness of breath or cough, no cognitive chest pain, she is currently on 5 L of oxygen the pulse ox of 90-92%, hemodynamically she is been stable, she's been afebrile, patient has been on IV steroids, prophylactic anticoagulation, and gentle IV hydration, and she reports feeling better, it was unclear the timeline of her symptom onset therefore patient was not a candidate for Remdesivir, she was treated conservatively with the steroids, and supplements. Doing well today On 05/07/2020 patient seen in follow-up on medical floor, she seems to be resting comfortably in bed however her FiO2 requirements have increased overnight, and she is currently at 15 L per high flow nasal cannula and her pulse ox of 93%, she's been afebrile, hemodynamically stable, patient is a poor historian however she seems to be breathing comfortably, no significant cough, denies chest x-ray shows stable nonspecific increased lung markings. Today's labs have been reviewed showing white blood cell count of 5.9, percent, 0.5, d- dimer has increased to 1.21, sodium is 135, potassium is 2.8, chloride is 102, CO2 is 19, BUN of 8 and creatinine of 0.7. LDH and CRP have improved since admission. We'll calcitonin level was borderline at 0.45. Patient has had no fever or chills, she is currently on vitamins, oral Decadron, and prophylactic dose of Lovenox. Objective - Vital Signs Vital signs: Vital Signs Temp 98.1 F 05/07/20 11:00 Pulse 95 05/07/20 11:00 Resp 17 05/07/20 11:00 BP 134/73 05/07/20 11:00 Pulse Ox 93 L 05/07/20 11:00 Intake & Output 05/06/20 05/07/20 05/07/20 18:59 06:59 18:59 Intake Total 360 1800 Output Total 300 Balance 60 1800 Intake: Intake, IV Titration 800 Amount Sodium Chloride 0.9% 1, 800 000 ml @ 75 mls/hr IV . [id number] [facility] Rx#:[id number] Oral 360 1000 Output: Urine 300 Other: Voiding Method Diaper Diaper Incontinent Incontinent # Voids 1 2 # Bowel Movements 1 - Exam GENERAL EXAM: Alert, pleasantly confused, 74-year-old white female, on 15 L of oxygen and the pulse ox 94%, resting comfortably in bed appears to be in no acute distress HEAD: Normocephalic/atraumatic. EYES: Normal reaction of pupils, equal size. Conjunctiva pink, sclera white. NOSE: Clear with pink turbinates. THROAT: No erythema or exudates. NECK: No masses, no JVD, no thyroid enlargement, no adenopathy. CHEST: No chest wall deformity. Symmetrical expansion. LUNGS: Equal air entry with no crackles, wheeze, rhonchi or dullness. CVS: Regular rate and rhythm, normal S1 and S2, no gallops, no murmurs, no rubs ABDOMEN: Soft, nontender. No hepatosplenomegaly, normal bowel sounds, no guarding or rigidity. EXTREMITIES: No clubbing, no edema, no cyanosis, 2+ pulses and upper and lower extremities. MUSCULOSKELETAL: Muscle strength and tone normal. SPINE: No scoliosis or deformity SKIN: No rashes CENTRAL NERVOUS SYSTEM: Alert and oriented -1. No focal deficits, tone is normal in all 4 extremities. - Labs CBC & Chem 7: 05/07/20 05:42 05/07/20 05:42 Labs: Abnormal Lab Results - Last 24 Hours (Table) 05/07/20 05/07/20 05/07/20 Range/Units 05:42 05:42 05:42 Lymphocytes # 0.5 L (1.0-4.8) k/uL D-Dimer 1.21 H (<0.60) mg/L FEU Potassium 2.8 L (3.5-5.5) mmol/L Carbon Dioxide 19.2 L (21.6-31.8) mmol/L Anion Gap 13.80 H (4.00-12.00) mmol/L BUN 8.0 L (9.0-27.0) mg/dL BUN/Creatinine Ratio 11.43 L (12.00-20.00) Ratio Calcium 8.2 L (8.7-10.3) mg/dL Lactate Dehydrogenase 290 H (120-246) U/L C-Reactive Protein 5.3 H (0.0-0.8) mg/dL Microbiology - Last 24 Hours (Table) 05/05/20 02:47 Blood Culture - Preliminary Blood No Growth after 48 hours 05/05/20 02:47 Blood Culture - Preliminary Blood No Growth after 48 hours Assessment and Plan Plan: Assessment: #1. Acute hypoxic respiratory failure related to COVID 19 pneumonia, the duration of her symptoms is not clear. On 05/07/2020 patient has had worsening of her oxygenation, and she is currently requiring 15 L per high flow nasal cannula with pulse ox of 93%. Continues on oral steroids in the form of Decadron, and vitamins, she was not a candidate for Remdesivir, patient has been treated with steroids and vitamins so far #2. Mildly elevated inflammatory markers related to COVID 19 infection #3. History of dementia #4. History of previous CVA #5. Medical debility, gait dysfunction, patient is chronically bedbound #6. Resident of the [facility] #7. Hypertension #8. History of smoking, currently in remission #9. Chronic pain, patient has a pain pump inserted Plan: Continue the steroids, continue the prophylactic dose Lovenox, patient is requiring higher oxygen flow, we'll give the patient one unit convalescent plasma, will obtain follow-up procalcitonin, overall her inflammatory markers have improved since admission, she does not appear to be in acute distress even though her O2 stats have worsened. Overall prognosis is extremely guarded and poor, we'll continue supportively treating this patient. Code status is DO NOT RESUSCITATE, if no improvement noted in the next few days and there is continued worsening hypoxemia hospice discussion should be initiated with the patient's family I performed a history & physical examination of the patient and discussed their management with my nurse practitioner, Nadja Luis. I reviewed the nurse practitioner's note and agree with the documented findings and plan of care. L jd sounds are positive for diminished breath sounds at the bases. The findings and the impression was discussed with the patient. I attest to the documentation by the nurse practitioner. Time with Patient: Less than 30
[2020-05-07] MEDS ORDERED: Potassium Replacement Protocol 1 EACH MISC MISCELLANE PRN (15:35)
--- NOTE | 2020-05-07 15:40 | P.PN ---
Subjective Progress Note Date: 05/07/20 Patient is an 74-year-old female admitted for acute hypoxic respiratory failure, secondary to covid 19, patient is a poor historian unable to tell me when she was diagnosed with the Covid. As per the patient patient symptoms has been going on for couple weeks although she is not a reliable historian patient oxygen saturation found to be in 70s was subsequently sent to ER patient was started on Decadron patient denied any shortness of breath denied any significant cough body aches. Patient doesn't have any fever patient is bit hyponatremic for started on IV fluids patient LDH is 645, d-dimer is within normal limits 05/06/2020 Seen and evaluated and follow-up in his lethargic although arousable. She does fatigue easily. Patient states she is a resident at [facility]. Patient denies any worsening shortness of breath and is maintained on 5 L of oxygen via nasal cannula and is 90%. With nursing staff about weaning FiO2 as tolerated as patient was on 6 L earlier this morning. Patient to continue on dexamethasone along with Lovenox, zinc, vitamin supplements. Pulmonary is following as well. Will repeat a.m. labs is most recent sodium was 133, potassium is 4.0, creatinine was 0.85 and inflammatory markers were elevated. 05/07/2020 Patient is seen in follow-up in overnight started requiring more oxygen and is currently on 15 L nonrebreather at 93%. Patient is lying in bed and has not gotten out of the bed. Patient is extremely lethargic although arousable and will respond appropriately. Patient is currently maintained on dexamethasone along with Lovenox and vitamin supplements and will continue at this time. Patient to receive 1 unit of convalescent plasma. Pulmonary is following. Patient's prognosis is poor and guarded and will discuss further treatment plan options were possible hospice comfort care with family if the patient does not show any improvement in her respiratory status in the next few days. Review of systems: Constitutional: reports of fatigue Cardiovascular: No reports of chest pain or palpitations Respiratory: No reports of shortness of breath or cough GI: No reports of nausea, vomiting, or diarrhea : No reports of dysuria or retention Neurovascular: Reports generalized weakness All medications have been reviewed Objective - Vital Signs Vital signs: Vital Signs Temp 98 F 05/07/20 04:54 Pulse 99 05/07/20 04:54 Resp 20 01/06/21 04:54 BP 146/80 05/07/20 04:54 Pulse Ox 93 L 05/07/20 05:20 Intake & Output 05/06/20 05/07/20 05/07/20 18:59 06:59 18:59 Intake Total 360 1800 Output Total 300 Balance 60 1800 Intake: Intake, IV Titration 800 Amount Sodium Chloride 0.9% 1, 800 000 ml @ 75 mls/hr IV . [id number] [facility] Rx#:[id number] Oral 360 1000 Output: Urine 300 Other: Voiding Method Diaper Diaper Incontinent Incontinent # Voids 1 2 # Bowel Movements 1 - Exam GENERAL: The patient is alert and oriented x2-3, not in any acute distress. Well developed, well nourished. Extremely Lethargic although arousable HEENT: Pupils are round and equally reacting to light. EOMI. No scleral icterus. No conjunctival pallor. Normocephalic, atraumatic. No pharyngeal erythema. No thyromegaly. CARDIOVASCULAR: S1 and S2 present. No murmurs, rubs, or gallops. PULMONARY: Diminished breath sounds bilaterally with some scattered rhonchi noted ABDOMEN: Soft, nontender, nondistended, normoactive bowel sounds. No palpable organomegaly. MUSCULOSKELETAL: No joint swelling or deformity. EXTREMITIES: No cyanosis, clubbing, or pedal edema. NEUROLOGICAL: Gross neurological examination did not reveal any new focal deficits. Does have weakness in the right side with right-sided facial droop which appears to be from her previous stroke SKIN: No rashes. - Labs CBC & Chem 7: 05/07/20 05:42 05/07/20 05:42 Labs: Abnormal Lab Results - Last 24 Hours (Table) 05/07/20 05/07/20 Range/Units 05:42 05:42 Lymphocytes # 0.5 L (1.0-4.8) k/uL D-Dimer 1.21 H (<0.60) mg/L FEU Microbiology - Last 24 Hours (Table) 05/05/20 02:47 Blood Culture - Preliminary Blood No Growth after 48 hours 05/05/20 02:47 Blood Culture - Preliminary Blood No Growth after 48 hours Assessment and Plan Assessment: -Acute hypoxic respiratory failure: Secondary to Covid 19, patient is maintained on Decadron, not a candidate for Remdesivir as her duration of symptoms is not clear although will be receiving a unit of convalescent plasma today. Patient is currently requiring more oxygen and is maintained on 15 L nonrebreather. Pulmonary is following. -Hypovolemic hyponatremia: improved. Discontinue IV fluids -CVA in the past: Patient does have weakness in the right side. Continue with aspirin and statin -Seizure disorder continue with Vimpat and Keppra. -Depression -DVT prophylaxis with Lovenox -No code Plan: Continue current medications. Patient to receive 1 unit of convalescent plasma. Patient requiring more oxygen support and is currently on 15 L nonrebreather. Chest x-ray is stable today although d-dimer is elevated at 1.21. Given patient's multiple comorbidities and complex medical issues, prognosis is extremely poor and guarded. We'll possibly discuss hospice or comfort if no real improvement in respiratory status is noted within the next few days. Will repeat a.m. labs. Further recommendations to follow.
[2020-05-07] MEDS: POTASSIUM CHLORIDE ER 20 MEQ TAB.ER PO SCH ×3 (16:16→19:37)
[2020-05-07] MEDS: PRAVASTATIN SODIUM 20 MG TAB PO SCH (19:35)
[2020-05-07] MEDS: SENNOSIDES 8.6 MG TAB PO SCH (19:37)
[2020-05-07] MEDS: METHYL SALICYLATE/MENTHOL CREAM 5 OZ TOPICAL SCH (19:38)
[2020-05-07] MEDS ORDERED: HYDROcodone/APAP 10-325MG 1 EACH TAB PO PRN (19:58)
[2020-05-07] MEDS: ALPRAZolam 0.25 MG TAB PO PRN (20:37)
[2020-05-08] MEDS: ARTIFICIAL TEARS-HYPROMELLOSE DROPS 15 ML BTL BOTH EYES SCH ×4 (03:51→21:18)
[2020-05-08] MEDS: SODIUM CHLORIDE 0.9% 1,000 ML IV SCH (07:23)
[2020-05-08 07:33] LABS: Basophils # (A) 0.1 k/uL (0-0.2); Basophils % (A) 1 %; Eosinophils # (A) 0.1 k/uL (0-0.7); Eosinophils % (A) 1 %; HGB 13.2 gm/dL (11.4-16.0); Lymphocytes # (A) 0.5 k/uL (1.0-4.8); Lymphocytes % (A) 8 %; MCH 32.1 pg (25.0-35.0); MCHC 34.8 g/dL (31.0-37.0); MCV 92.1 fL (80.0-100.0); Mean Platelet Volume 7.5; Monocytes # (A) 0.3 k/uL (0-1.0); Monocytes % (A) 4 %; Neutrophils # (A) 5.4 k/uL (1.3-7.7); Neutrophils % (A) 85 %; Platelet Count 239 k/uL (150-450); RBC 4.13 m/uL (3.80-5.40); RDW 12.6 % (11.5-15.5); WBC 6.3 k/uL (3.8-10.6)
[2020-05-08 08:12] LABS: African American GFR (CKD) >90 (>60 ml/min/1.73 sqM); Anion Gap 8 mmol/L; Blood Urea Nitrogen 7 mg/dL (7-17); Calcium 8.6 mg/dL (8.4-10.2); Carbon Dioxide 20 mmol/L (22-30); Chloride 104 mmol/L (98-107); Glucose 92 mg/dL (74-99); Non-African American GFR(CKD) >90 (>60 ml/min/1.73 sqM); Potassium 2.9 mmol/L (3.5-5.1); Sodium 132 mmol/L (137-145)
[2020-05-08] MEDS: ASCORBIC ACID 500 MG TAB PO SCH ×2 (08:31→19:54)
[2020-05-08] MEDS: ALPRAZolam 0.25 MG TAB PO SCH (08:31)
[2020-05-08] MEDS: LACOSAMIDE 50 MG TABLET PO SCH ×2 (08:31→19:53)
[2020-05-08] MEDS: ENOXAPARIN 40 MG/0.4 ML SYRINGE SQ SCH (08:31)
[2020-05-08] MEDS: ASPIRIN 81 MG PO SCH (08:31)
[2020-05-08] MEDS: CHOLECALCIFEROL 400 UNIT TAB PO SCH (08:32)
[2020-05-08] MEDS: HYDROcodone/APAP 10-325MG 1 EACH TAB PO SCH ×2 (08:32→19:55)
[2020-05-08] MEDS: GABAPENTIN 400 MG CAP PO SCH ×3 (08:32→21:16)
[2020-05-08] MEDS: DULoxetine HCL 30 MG CAPSULE.DR PO SCH (08:32)
[2020-05-08] MEDS: BACLOFEN 10 MG TAB PO SCH ×3 (08:32→21:16)
[2020-05-08] MEDS: levETIRAcetam 500 MG TAB PO SCH ×2 (08:33→19:54)
[2020-05-08] MEDS: SODIUM CHLORIDE TAB 1 GM TAB PO SCH ×2 (08:34→19:54)
[2020-05-08] MEDS: ZINC SULFATE 220 MG CAP PO SCH (08:34)
[2020-05-08] MEDS: DEXAMETHASONE SOD PHOSPHATE 10 MG/ML 1 ML VIAL IV SCH (10:25)
[2020-05-08] MEDS ORDERED: Potassium Replacement Protocol 1 EACH MISC MISCELLANE PRN (11:34)
[2020-05-08] MEDS: POTASSIUM CHLORIDE ER 20 MEQ TAB.ER PO SCH ×3 (12:13→14:09)
--- NOTE | 2020-05-08 12:45 | P.PN ---
Subjective Progress Note Date: 05/08/20 Principal diagnosis: Hypoxemia 74-year-old white female patient, resident of a local long-term care facility, [facility], who is a poor historian with previous history of dementia, history of CVA, hypertension, former smoker, gait dysfunction, and patient is chronically bedbound, who was brought into the hospital on 05/05/2020 for evaluation of hypoxemia. Apparently patient was recently diagnosed with the cold infection. She had pulse oximetry readings in the 70s. EMS was called, and supplemental oxygen was placed on the patient. Patient is a poor historian, however she denies being short of breath, she denies any cough, fever or chills. She is not able to tell us alone she had not been feeling well. He is not able to tell us when she was tested for the cold infection. Chest x-ray in the emergency department showed hazy left upper lobe opacity. Her lab data showed a white blood cell, 3.5, hemoglobin of 11.9, lymphocyte, 0.8, d-dimer was negative at 0.25, INR was 1, sodium was 133, progressive electrolytes and renal profile were within normal limits, plasma lactic acid 0.6, ferritin level was 780, AST was 88, ALT was 32 alkaline phosphatase was 79, LDH 645, CRP was 48.1, pro calcitonin level was 0.45. Currently the patient is on 5 L of oxygen her pulse ox is 94%, she is resting comfortably in bed, she is able to provide simple answers, she did not know she was in the hospital, but she denies any acute distress. She is afebrile, hemodynamically patient is stable. Denies any nausea or vomiting. She was given a liter bolus in the emergency department, she has IV fluids infusing at 75 ML per hour, she was started on oral dexamethasone 6 mg IV daily, and Lovenox at prophylactic dose of 40 mg once daily On 05/03/2020 patient seen in follow-up on medical floor, she is resting quietly in bed, she is a poor historian, she has a history of underlying dementia, but she seems to be breathing comfortably, she denies any specific complaints, she denied any shortness of breath or cough, no cognitive chest pain, she is currently on 5 L of oxygen the pulse ox of 90-92%, hemodynamically she is been stable, she's been afebrile, patient has been on IV steroids, prophylactic anticoagulation, and gentle IV hydration, and she reports feeling better, it was unclear the timeline of her symptom onset therefore patient was not a candidate for Remdesivir, she was treated conservatively with the steroids, and supplements. Doing well today On 05/07/2020 patient seen in follow-up on medical floor, she seems to be resting comfortably in bed however her FiO2 requirements have increased overnight, and she is currently at 15 L per high flow nasal cannula and her pulse ox of 93%, she's been afebrile, hemodynamically stable, patient is a poor historian however she seems to be breathing comfortably, no significant cough, denies chest x-ray shows stable nonspecific increased lung markings. Today's labs have been reviewed showing white blood cell count of 5.9, percent, 0.5, d- dimer has increased to 1.21, sodium is 135, potassium is 2.8, chloride is 102, CO2 is 19, BUN of 8 and creatinine of 0.7. LDH and CRP have improved since admission. We'll calcitonin level was borderline at 0.45. Patient has had no fever or chills, she is currently on vitamins, oral Decadron, and prophylactic dose of Lovenox. On 05/08/2020 patient seen in follow-up on medical floor, she is resting comfortably in bed, she denies any acute distress, looking more alert and responsive on today's exam, does not appear to be in any respiratory distress, no cough, still on 15 L of oxygen, pulse ox is 90-92%. Hemodynamically stable, T-max in the last 24 hours is 99.3. Her inflammatory markers were improving since admission, pro calcitonin on admission was 0.45, we will obtain follow-up pro calcitonin today, the rest of her labs were reviewed showing lymphopenia of 0.5, the rest of the CBC was within normal limits, sodium is 132, potassium is 2.9, chloride is 104, CO2 is 20, and a renal profile was unremarkable. Patient continues on IV Decadron, vitamin C, vitamin D, zinc, and prophylactic Lovenox. Breathing comfortably, no acute distress noted Objective - Vital Signs Vital signs: Vital Signs Temp 99.3 F 05/08/20 11:00 Pulse 95 05/08/20 11:00 Resp 20 05/08/20 11:00 BP 163/76 05/08/20 11:00 Pulse Ox 90 L 05/08/20 11:00 Intake & Output 05/07/20 05/08/20 05/08/20 18:59 06:59 18:59 Intake Total 0 1120 Balance 0 1120 Intake: Oral 1000 Blood Product 0 120 Ffp Pher Conval Covid19 0 120 Acda 1 Unit [id number] Other: Voiding Method Diaper Diaper Diaper Incontinent Incontinent Incontinent # Voids 6 1 # Bowel Movements 1 - Exam GENERAL EXAM: Alert, pleasantly confused, 74-year-old white female, on 15 L of oxygen and the pulse ox 90-92%, resting comfortably in bed appears to be in no acute distress HEAD: Normocephalic/atraumatic. EYES: Normal reaction of pupils, equal size. Conjunctiva pink, sclera white. NOSE: Clear with pink turbinates. THROAT: No erythema or exudates. NECK: No masses, no JVD, no thyroid enlargement, no adenopathy. CHEST: No chest wall deformity. Symmetrical expansion. LUNGS: Equal air entry with no crackles, wheeze, rhonchi or dullness. CVS: Regular rate and rhythm, normal S1 and S2, no gallops, no murmurs, no rubs ABDOMEN: Soft, nontender. No hepatosplenomegaly, normal bowel sounds, no guarding or rigidity. EXTREMITIES: No clubbing, no edema, no cyanosis, 2+ pulses and upper and lower extremities. MUSCULOSKELETAL: Muscle strength and tone normal. SPINE: No scoliosis or deformity SKIN: No rashes CENTRAL NERVOUS SYSTEM: Alert and oriented -1. No focal deficits, tone is normal in all 4 extremities. - Labs CBC & Chem 7: 05/08/20 07:01 05/08/20 07:01 Labs: Abnormal Lab Results - Last 24 Hours (Table) 05/07/20 05/08/20 05/08/20 Range/Units 23:26 07:01 07:01 Lymphocytes # 0.5 L (1.0-4.8) k/uL Sodium 132 L (137-145) mmol/L Potassium 3.3 L 2.9 L (3.5-5.1) mmol/L Carbon Dioxide 20 L (22-30) mmol/L Microbiology - Last 24 Hours (Table) 05/05/20 02:47 Blood Culture - Preliminary Blood No Growth after 72 hours 05/05/20 02:47 Blood Culture - Preliminary Blood No Growth after 72 hours Assessment and Plan Plan: Assessment: #1. Acute hypoxic respiratory failure related to COVID 19 pneumonia, the duration of her symptoms is not clear. On 05/07/2020 patient has had worsening of her oxygenation, and she is currently requiring 15 L per high flow nasal cannula with pulse ox of 93%. Continues on oral steroids in the form of Decadron, and vitamins, she was not a candidate for Remdesivir, patient has been treated with steroids and vitamins so far On 05/08/2020 patient seen in follow-up, currently on 15 L of oxygen, pulse ox is 90-92%, does not appear to be in any respiratory distress, she's been afebri le, hemodynamically she has been stable, patient is status post 1 unit of convalescent immunoglobulin for COVID 19 #2. Mildly elevated inflammatory markers related to COVID 19 infection, improved since admission #3. History of dementia #4. History of previous CVA #5. Medical debility, gait dysfunction, patient is chronically bedbound #6. Resident of the [facility] #7. Hypertension #8. History of smoking, currently in remission #9. Chronic pain, patient has a pain pump inserted Plan: Continue current medical treatment, patient has received 1 unit of IV immunoglobulin for COVID 19, remains on IV Decadron, prophylactic Lovenox, still requiring high flow oxygen but denies any worsening dyspnea, will continue current treatment, follow-up chest x-ray in the morning. I performed a history & physical examination of the patient and discussed their management with my nurse practitioner, Nadja Luis. I reviewed the nurse practitioner's note and agree with the documented findings and plan of care. Lung sounds are positive for diminished breath sounds at the bases. The findings and the impression was discussed with the patient. I attest to the documentation by the nurse practitioner. Time with Patient: Less than 30
--- NOTE | 2020-05-08 13:38 | P.PN ---
Subjective Progress Note Date: 05/08/20 Patient is an 74-year-old female admitted for acute hypoxic respiratory failure, secondary to covid 19, patient is a poor historian unable to tell me when she was diagnosed with the Covid. As per the patient patient symptoms has been going on for couple weeks although she is not a reliable historian patient oxygen saturation found to be in 70s was subsequently sent to ER patient was started on Decadron patient denied any shortness of breath denied any significant cough body aches. Patient doesn't have any fever patient is bit hyponatremic for started on IV fluids patient LDH is 645, d-dimer is within normal limits 05/06/2020 Seen and evaluated and follow-up in his lethargic although arousable. She does fatigue easily. Patient states she is a resident at [facility]. Patient denies any worsening shortness of breath and is maintained on 5 L of oxygen via nasal cannula and is 90%. With nursing staff about weaning FiO2 as tolerated as patient was on 6 L earlier this morning. Patient to continue on dexamethasone along with Lovenox, zinc, vitamin supplements. Pulmonary is following as well. Will repeat a.m. labs is most recent sodium was 133, potassium is 4.0, creatinine was 0.85 and inflammatory markers were elevated. 05/07/2020 Patient is seen in follow-up in overnight started requiring more oxygen and is currently on 15 L nonrebreather at 93%. Patient is lying in bed and has not gotten out of the bed. Patient is extremely lethargic although arousable and will respond appropriately. Patient is currently maintained on dexamethasone along with Lovenox and vitamin supplements and will continue at this time. Patient to receive 1 unit of convalescent plasma. Pulmonary is following. Patient's prognosis is poor and guarded and will discuss further treatment plan options were possible hospice comfort care with family if the patient does not show any improvement in her respiratory status in the next few days. 05/08/2020 Patient is seen and evaluated and follow-up status post 1 unit of convalescent plasma. Patient is maintained on 15 L nonrebreather at 90%. Patient denies any worsening dyspnea at this time. Pulmonary is following. Will continue to monitor respiratory status and continue with IV steroids along with Lovenox and vitamin supplements. Review of systems: Constitutional: reports of fatigue Cardiovascular: No reports of chest pain or palpitations Respiratory: No reports of shortness of breath or cough GI: No reports of nausea, vomiting, or diarrhea : No reports of dysuria or retention Neurovascular: Reports generalized weakness All medications have been reviewed Objective - Vital Signs Vital signs: Vital Signs Temp 98.8 F 05/08/20 05:00 Pulse 92 05/08/20 05:00 Resp 16 05/08/20 05:00 BP 149/67 05/08/20 05:00 Pulse Ox 92 L 05/08/20 05:00 Intake & Output 05/07/20 05/08/20 05/08/20 18:59 06:59 18:59 Intake Total 0 1120 Balance 0 1120 Intake: Oral 1000 Blood Product 0 120 Ffp Pher Conval Covid19 0 120 Acda 1 Unit [id number] Other: Voiding Method Diaper Diaper Diaper Incontinent Incontinent Incontinent # Voids 6 1 # Bowel Movements 1 - Exam GENERAL: The patient is alert and oriented x2-3, not in any acute distress. Well developed, well nourished. Extremely Lethargic although arousable HEENT: Pupils are round and equally reacting to light. EOMI. No scleral icterus. No conjunctival pallor. Normocephalic, atraumatic. No pharyngeal erythema. No thyromegaly. CARDIOVASCULAR: S1 and S2 present. No murmurs, rubs, or gallops. PULMONARY: Diminished breath sounds bilaterally with no wheezing or rhonchi noted ABDOMEN: Soft, nontender, nondistended, normoactive bowel sounds. No palpable organomegaly. MUSCULOSKELETAL: No joint swelling or deformity. EXTREMITIES: No cyanosis, clubbing, or pedal edema. NEUROLOGICAL: Gross neurological examination did not reveal any new focal deficits. Does have weakness in the right side with right-sided facial droop which appears to be from her previous stroke SKIN: No rashes. - Labs CBC & Chem 7: 05/08/20 07:01 05/08/20 07:01 Labs: Abnormal Lab Results - Last 24 Hours (Table) 05/07/20 05/07/20 05/08/20 Range/Units 05:42 23:26 07:01 Lymphocytes # 0.5 L (1.0-4.8) k/uL Sodium (137-145) mmol/L Potassium 3.3 L (3.5-5.1) mmol/L Carbon Dioxide (22-30) mmol/L BUN/Creatinine Ratio 11.43 L (12.00-20.00) Ratio 05/08/20 Range/Units 07:01 Lymphocytes # (1.0-4.8) k/uL Sodium 132 L (137-145) mmol/L Potassium 2.9 L (3.5-5.1) mmol/L Carbon Dioxide 20 L (22-30) mmol/L BUN/Creatinine Ratio (12.00-20.00) Ratio Microbiology - Last 24 Hours (Table) 05/05/20 02:47 Blood Culture - Preliminary Blood No Growth after 72 hours 05/05/20 02:47 Blood Culture - Preliminary Blood No Growth after 72 hours Assessment and Plan Assessment: -Acute hypoxic respiratory failure: Secondary to Covid 19, patient is maintained on Decadron, not a candidate for Remdesivir as her duration of symptoms is not clear although did receive a unit of convalescent plasma. Patient is currently maintained on 15 L nonrebreather. Oxygen saturation is 90%. Pulmonary is following. -Hypovolemic hyponatremia: improved -Hypokalemia, replacing per protocol, will repeat a.m. labs -CVA in the past: Patient does have chronic weakness in the right side. Continue with aspirin and statin -Seizure disorder continue with Vimpat and Keppra. -Depression -DVT prophylaxis with Lovenox -No code Plan: Continue current medications. Patient received 1 unit of convalescent plasma. Patient maintained on 15 L nonrebreather. Will repeat a.m. checks x-ray. Given patient's multiple comorbidities and complex medical issues, prognosis is extremely poor and guarded. Possibility of hospice or comfort if no real improvement in respiratory status is noted within the next few days. Potassium found to be low today and will replace per protocol. Will repeat a.m. labs. Further recommendations to follow.
[2020-05-08] MEDS: ALPRAZolam 0.25 MG TAB PO PRN (16:25)
[2020-05-08] MEDS: POTASSIUM CHLORIDE 10 MEQ in WATER FOR INJECTION 1 100ML.BAG IVPB SCH ×4 (16:26→21:17)
[2020-05-08] MEDS ORDERED: ALPRAZolam 0.25 MG TAB PO STA (19:44)
[2020-05-08] MEDS: SENNOSIDES 8.6 MG TAB PO SCH (19:54)
[2020-05-08] MEDS: METHYL SALICYLATE/MENTHOL CREAM 5 OZ TOPICAL SCH (19:57)
[2020-05-08] MEDS: PRAVASTATIN SODIUM 20 MG TAB PO SCH (21:16)
--- NOTE | 2020-05-09 06:48 | XR ---
EXAMINATION TYPE: XR chest 1V portable DATE OF EXAM: 05/09/2020 CLINICAL HISTORY: Difficulty breathing and covid 19 infection progress study. TECHNIQUE: Single AP portable upright view of the chest is obtained. COMPARISON: Chest x-ray from 2 and 4 days earlier FINDINGS: Underlying scoliosis is redemonstrated. Cardiac silhouette size stable and within normal l imits with atherosclerotic change in the thoracic aorta. Multifocal reticulonodular increased opaciti es bilaterally remain present. IMPRESSION: Persistent multifocal bilateral reticulonodular acute infiltrates consistent with covid 1 9 infection. No significant interval change or progression.
[2020-05-09] MEDS: ZINC SULFATE 220 MG CAP PO SCH (08:27)
[2020-05-09] MEDS: levETIRAcetam 500 MG TAB PO SCH ×2 (08:27→21:39)
[2020-05-09] MEDS: LACOSAMIDE 50 MG TABLET PO SCH ×2 (08:27→21:39)
[2020-05-09] MEDS: GABAPENTIN 400 MG CAP PO SCH ×3 (08:27→21:42)
[2020-05-09] MEDS: SODIUM CHLORIDE TAB 1 GM TAB PO SCH ×2 (08:27→21:36)
[2020-05-09] MEDS: ASPIRIN 81 MG PO SCH (08:28)
[2020-05-09] MEDS: ALPRAZolam 0.25 MG TAB PO SCH (08:28)
[2020-05-09] MEDS: DEXAMETHASONE SOD PHOSPHATE 10 MG/ML 1 ML VIAL IV SCH (08:28)
[2020-05-09] MEDS: DULoxetine HCL 30 MG CAPSULE.DR PO SCH (08:29)
[2020-05-09] MEDS: HYDROcodone/APAP 10-325MG 1 EACH TAB PO SCH ×2 (08:29→21:40)
[2020-05-09] MEDS: ASCORBIC ACID 500 MG TAB PO SCH ×2 (08:29→21:39)
[2020-05-09] MEDS: CHOLECALCIFEROL 400 UNIT TAB PO SCH (08:29)
[2020-05-09] MEDS: BACLOFEN 10 MG TAB PO SCH ×3 (08:29→21:42)
[2020-05-09] MEDS: ENOXAPARIN 40 MG/0.4 ML SYRINGE SQ SCH (08:30)
[2020-05-09] MEDS: ARTIFICIAL TEARS-HYPROMELLOSE DROPS 15 ML BTL BOTH EYES SCH ×3 (08:43→22:03)
[2020-05-09 11:11] LABS: African American GFR (CKD) 99.6 (60.0-200.0); Anion Gap 15.3 mmol/L (4.00-12.00); BUN/Creat Ratio 11.43 Ratio (12.00-20.00); Carbon Dioxide 16.7 mmol/L (21.6-31.8); Potassium 4.2 mmol/L (3.5-5.5)
--- NOTE | 2020-05-09 12:04 | P.PN ---
Subjective Progress Note Date: 05/09/20 Principal diagnosis: Hypoxemia 74-year-old white female patient, resident of a local long-term care facility, [facility], who is a poor historian with previous history of dementia, history of CVA, hypertension, former smoker, gait dysfunction, and patient is chronically bedbound, who was brought into the hospital on 05/05/2020 for evaluation of hypoxemia. Apparently patient was recently diagnosed with the cold infection. She had pulse oximetry readings in the 70s. EMS was called, and supplemental oxygen was placed on the patient. Patient is a poor historian, however she denies being short of breath, she denies any cough, fever or chills. She is not able to tell us alone she had not been feeling well. He is not able to tell us when she was tested for the cold infection. Chest x-ray in the emergency department showed hazy left upper lobe opacity. Her lab data showed a white blood cell, 3.5, hemoglobin of 11.9, lymphocyte, 0.8, d-dimer was negative at 0.25, INR was 1, sodium was 133, progressive electrolytes and renal profile were within normal limits, plasma lactic acid 0.6, ferritin level was 780, AST was 88, ALT was 32 alkaline phosphatase was 79, LDH 645, CRP was 48.1, pro calcitonin level was 0.45. Currently the patient is on 5 L of oxygen her pulse ox is 94%, she is resting comfortably in bed, she is able to provide simple answers, she did not know she was in the hospital, but she denies any acute distress. She is afebrile, hemodynamically patient is stable. Denies any nausea or vomiting. She was given a liter bolus in the emergency department, she has IV fluids infusing at 75 ML per hour, she was started on oral dexamethasone 6 mg IV daily, and Lovenox at prophylactic dose of 40 mg once daily On 05/03/2020 patient seen in follow-up on medical floor, she is resting quietly in bed, she is a poor historian, she has a history of underlying dementia, but she seems to be breathing comfortably, she denies any specific complaints, she denied any shortness of breath or cough, no cognitive chest pain, she is currently on 5 L of oxygen the pulse ox of 90-92%, hemodynamically she is been stable, she's been afebrile, patient has been on IV steroids, prophylactic anticoagulation, and gentle IV hydration, and she reports feeling better, it was unclear the timeline of her symptom onset therefore patient was not a candidate for Remdesivir, she was treated conservatively with the steroids, and supplements. Doing well today On 05/07/2020 patient seen in follow-up on medical floor, she seems to be resting comfortably in bed however her FiO2 requirements have increased overnight, and she is currently at 15 L per high flow nasal cannula and her pulse ox of 93%, she's been afebrile, hemodynamically stable, patient is a poor historian however she seems to be breathing comfortably, no significant cough, denies chest x-ray shows stable nonspecific increased lung markings. Today's labs have been reviewed showing white blood cell count of 5.9, percent, 0.5, d- dimer has increased to 1.21, sodium is 135, potassium is 2.8, chloride is 102, CO2 is 19, BUN of 8 and creatinine of 0.7. LDH and CRP have improved since admission. We'll calcitonin level was borderline at 0.45. Patient has had no fever or chills, she is currently on vitamins, oral Decadron, and prophylactic dose of Lovenox. On 05/08/2020 patient seen in follow-up on medical floor, she is resting comfortably in bed, she denies any acute distress, looking more alert and responsive on today's exam, does not appear to be in any respiratory distress, no cough, still on 15 L of oxygen, pulse ox is 90-92%. Hemodynamically stable, T-max in the last 24 hours is 99.3. Her inflammatory markers were improving since admission, pro calcitonin on admission was 0.45, we will obtain follow-up pro calcitonin today, the rest of her labs were reviewed showing lymphopenia of 0.5, the rest of the CBC was within normal limits, sodium is 132, potassium is 2.9, chloride is 104, CO2 is 20, and a renal profile was unremarkable. Patient continues on IV Decadron, vitamin C, vitamin D, zinc, and prophylactic Lovenox. Breathing comfortably, no acute distress noted On 05/09/2020 patient on medical floor, she is calm and comfortable, she is resting in bed, breathing comfortably, does not appear to be in any acute distress despite requiring high flow oxygen, currently on Airvo at 60l l/min, Fio2 92% with a pulse ox of 93%. Today's chest x-ray shows persistent multif ocal bilateral reticular nodular acute infiltrates consistent with COVID 19 infection, with no significant interval change or progression. We'll add empiric antibiotics in the form of Zosyn especially in view of worsening oxygenation. We'll continue the vitamins, continue prophylactic dose Lovenox, and IV Decadron 6 mg daily. She is poor historian but does not appear to be in any respiratory distress Objective - Vital Signs Vital signs: Vital Signs Temp 98.2 F 05/09/20 11:00 Pulse 125 H 05/09/20 11:00 Resp 22 05/09/20 11:00 BP 179/70 05/09/20 11:00 Pulse Ox 92 L 05/09/20 11:22 Intake & Output 05/08/20 05/09/20 05/09/20 18:59 06:59 18:59 Other: Voiding Method Diaper Diaper Diaper Incontinent Incontinent Incontinent # Voids 1 4 # Bowel Movements 1 2 - Exam GENERAL EXAM: Alert, pleasantly confused, 74-year-old white female, on Airvo at 60 l/min, and Fio2 91% with pulse ox of92%, resting comfortably in bed appears to be in no acute distress HEAD: Normocephalic/atraumatic. EYES: Normal reaction of pupils, equal size. Conjunctiva pink, sclera white. NOSE: Clear with pink turbinates. THROAT: No erythema or exudates. NECK: No masses, no JVD, no thyroid enlargement, no adenopathy. CHEST: No chest wall deformity. Symmetrical expansion. LUNGS: Equal air entry with no crackles, wheeze, rhonchi or dullness. CVS: Regular rate and rhythm, normal S1 and S2, no gallops, no murmurs, no rubs ABDOMEN: Soft, nontender. No hepatosplenomegaly, normal bowel sounds, no guarding or rigidity. EXTREMITIES: No clubbing, no edema, no cyanosis, 2+ pulses and upper and lower extremities. MUSCULOSKELETAL: Muscle strength and tone normal. SPINE: No scoliosis or deformity SKIN: No rashes CENTRAL NERVOUS SYSTEM: Alert and oriented -1. No focal deficits, tone is normal in all 4 extremities. - Labs CBC & Chem 7: 05/08/20 07:01 05/09/20 06:20 Labs: Abnormal Lab Results - Last 24 Hours (Table) 05/08/20 05/08/20 05/09/20 Range/Units 07:01 15:05 06:20 Sodium 132 L (135-145) mmol/L Potassium 3.1 L (3.5-5.1) mmol/L Carbon Dioxide 16.7 L (21.6-31.8) mmol/L Anion Gap 15.30 H (4.00-12.00) mmol/L BUN 8.0 L (9.0-27.0) mg/dL BUN/Creatinine Ratio 11.43 L (12.00-20.00) Ratio Procalcitonin 0.33 H (0.02-0.09) ng/mL Microbiology - Last 24 Hours (Table) 05/05/20 02:47 Blood Culture - Preliminary Blood No Growth after 96 hours 05/05/20 02:47 Blood Culture - Preliminary Blood No Growth after 96 hours Assessment and Plan Plan: Assessment: #1. Acute hypoxic respiratory failure related to COVID 19 pneumonia, the duration of her symptoms is not clear. On 05/07/2020 patient has had worsening of her oxygenation, and she is currently requiring 15 L per high flow nasal cannula with pulse ox of 93%. Continues on oral steroids in the form of Decadron, and vitamins, she was not a candidate for Remdesivir, patient has been treated with steroids and vitamins so far On 05/08/2020 patient seen in follow-up, currently on 15 L of oxygen, pulse ox is 90-92%, does not appear to be in any respiratory distress, she's been afebrile, hemodynamically she has been stable, patient is status post 1 unit of convalescent immunoglobulin for COVID 19 On 05/09/2020 patient seen in follow-up on medical floor, currently on Airvo at 60 L and FiO2 of 92% with a pulse ox of 92%, although clinically she looks comfortable oxygenation significantly worsened, chest x-ray still shows bilateral multifocal airspace disease, consistent with COVID 19 pneumonia. #2. Mildly elevated inflammatory markers related to COVID 19 infection, improved since admission #3. History of dementia #4. History of previous CVA #5. Medical debility, gait dysfunction, patient is chronically bedbound #6. [facility] [place] #7. Hypertension #8. History of smoking, currently in remission #9. Chronic pain, patient has a pain pump inserted Plan: We will continue current medical treatment, continue high flow oxygen, continue IV steroids, vitamins, continue prophylactic Lovenox, we will add empiric antibiotics, will send inflammatory markers, d-dimer, proBNP, lactic acid. Continue to follow, overall prognosis is poor, patient's CODE STATUS is DO NOT RESUSCITATE, if she continues to worsen hospice should be considered and discussed with patient's legal guardian I performed a history & physical examination of the patient and discussed their management with my nurse practitioner, Nadja Luis. I reviewed the nurse practitioner's note and agree with the documented findings and plan of care. Lung sounds are positive for diminished breath sounds at the bases. The findings and the impression was discussed with the patient. I attest to the documentation by the nurse practitioner. Time with Patient: Less than 30
[2020-05-09 12:53] LABS: Basophils % (A) 0 %; Eosinophils % (A) 0 %; HCT 38.1 % (34.0-46.0); HGB 13.3 gm/dL (11.4-16.0); Lymphocytes # (A) 0.4 k/uL (1.0-4.8); Lymphocytes % (A) 3 %; MCH 31.9 pg (25.0-35.0); MCHC 35.1 g/dL (31.0-37.0); MCV 91.1 fL (80.0-100.0); Mean Platelet Volume 7.4; Monocytes # (A) 0.3 k/uL (0-1.0); Monocytes % (A) 3 %; Neutrophils % (A) 94 %; Platelet Count 290 k/uL (150-450); RBC 4.18 m/uL (3.80-5.40); RDW 12.8 % (11.5-15.5); WBC 12.8 k/uL (3.8-10.6)
[2020-05-09] MEDS: PIPERACILLIN-TAZOBACTAM 3.375 GM in SODIUM CHLORIDE 0.9% 100 ML IVPB SCH ×2 (13:02→19:36)
[2020-05-09 13:22] LABS: C Reactive Protein 82.6 mg/L (<10.0)
--- NOTE | 2020-05-09 14:46 | P.PN ---
Subjective Progress Note Date: 05/09/20 Patient is an 74-year-old female admitted for acute hypoxic respiratory failure, secondary to covid 19, patient is a poor historian unable to tell me when she was diagnosed with the Covid. As per the patient patient symptoms has been going on for couple weeks although she is not a reliable historian patient oxygen saturation found to be in 70s was subsequently sent to ER patient was started on Decadron patient denied any shortness of breath denied any significant cough body aches. Patient doesn't have any fever patient is bit hyponatremic for started on IV fluids patient LDH is 645, d-dimer is within normal limits 05/06/2020 Seen and evaluated and follow-up in his lethargic although arousable. She does fatigue easily. Patient states she is a resident at [facility]. Patient denies any worsening shortness of breath and is maintained on 5 L of oxygen via nasal cannula and is 90%. With nursing staff about weaning FiO2 as tolerated as patient was on 6 L earlier this morning. Patient to continue on dexamethasone along with Lovenox, zinc, vitamin supplements. Pulmonary is following as well. Will repeat a.m. labs is most recent sodium was 133, potassium is 4.0, creatinine was 0.85 and inflammatory markers were elevated. 05/07/2020 Patient is seen in follow-up in overnight started requiring more oxygen and is currently on 15 L nonrebreather at 93%. Patient is lying in bed and has not gotten out of the bed. Patient is extremely lethargic although arousable and will respond appropriately. Patient is currently maintained on dexamethasone along with Lovenox and vitamin supplements and will continue at this time. Patient to receive 1 unit of convalescent plasma. Pulmonary is following. Patient's prognosis is poor and guarded and will discuss further treatment plan options were possible hospice comfort care with family if the patient does not show any improvement in her respiratory status in the next few days. 05/08/2020 Patient is seen and evaluated and follow-up status post 1 unit of convalescent plasma. Patient is maintained on 15 L nonrebreather at 90%. Patient denies any worsening dyspnea at this time. Pulmonary is following. Will continue to monitor respiratory status and continue with IV steroids along with Lovenox and vitamin supplements. 05/09/2020 Patient is seen and evaluated in follow-up requiring more oxygen and patient was placed on Airvo with a flow rate of 60 and FiO2 of 91 and is currently 92%. Patient is a bit tachycardic as well. Low Grade intermittent fevers noted. Patient is very lethargic although arousable and per nursing staff patient is extremely anxious throughout the day. Medications have been adjusted. Patient did receive a unit of convalescent plasma yesterday and will be started on IV Zosyn along with Lovenox, dexamethasone, vitamin C and D supplements and will continue at this time. Pulmonary is following closely. Today's chest x-ray shows persistent multifocal bilateral reticulonodular acute infiltrates consistent with Covid 19 infection with no change or progression from previous. Patient's d-dimer is also elevated in 1.54. Inflammatory markers are elevated. Potassium was replaced and is currently 4.2. Prognosis remains extremely poor and guarded. Will continue to monitor closely. Review of systems: Constitutional: reports of fatigue Cardiovascular: No reports of chest pain or palpitations Respiratory: No reports of shortness of breath or cough GI: No reports of nausea, vomiting, or diarrhea : No reports of dysuria or retention Neurovascular: Reports generalized weakness All medications have been reviewed Active Medications Acetaminophen (Acetaminophen Tab 325 Mg Tab) 650 mg PO Q4H PRN PRN Reason: Mild Pain or Fever >= 100.5 Last Admin: 05/08/20 11:15 Dose: 650 mg Documented by: Hydrocodone Bitart/Acetaminophen (Hydrocodone/Apap 10-325mg 1 Each Tab) 1 each PO BID [facility] Last Admin: 05/09/20 08:29 Dose: 1 each Documented by: Hydrocodone Bitart/Acetaminophen (Hydrocodone/Apap 10-325mg 1 Each Tab) 1 each PO Q6H PRN PRN Reason: Pain Last Admin: 05/08/20 02:01 Dose: 1 each Documented by: Alprazolam (Alprazolam 0.25 Mg Tab) 0.25 mg PO DAILY PRN PRN Reason: Anxiety Last Admin: 05/08/20 16:25 Dose: 0.25 mg Documented by: Artificial Tears (Artificial Tears-Hypromellose Drops 15 Ml Btl) 2 drops BOTH EYES TID [facility] Last Admin: 05/09/20 08:43 Dose: 2 drops Documented by: Ascorbic Acid (Ascorbic Acid 500 Mg Tab) 500 mg PO BID [facility] Last Admin: 05/09/20 08:29 Dose: 500 mg Documented by: Aspirin (Aspirin 81 Mg) 81 mg PO DAILY [facility] Last Admin: 05/09/20 08:28 Dose: 81 mg Documented by: Baclofen (Baclofen 10 Mg Tab) 10 mg PO TID [facility] Last Admin: 05/09/20 08:29 Dose: 10 mg Documented by: Bisacodyl (Bisacodyl 10 Mg Supp) 10 mg RECTAL Q96H PRN PRN Reason: Constipation Cholecalciferol (Cholecalciferol 400 Unit Tab) 400 unit PO DAILY [facility] Last Admin: 05/09/20 08:29 Dose: 400 unit Documented by: Dexamethasone Sodium Phosphate (Dexamethasone Sod Phosphate 10 Mg/Ml 1 Ml Vial) 6 mg IV DAILY [facility] Last Admin: 05/09/20 08:28 Dose: 6 mg Documented by: Duloxetine HCl (Duloxetine Hcl 30 Mg Capsule.Dr) 30 mg PO DAILY [facility] Last Admin: 05/09/20 08:29 Dose: 30 mg Documented by: Enoxaparin Sodium (Enoxaparin 40 Mg/0.4 Ml Syringe) 40 mg SQ DAILY [facility] Last Admin: 05/09/20 08:30 Dose: 40 mg Documented by: Gabapentin (Gabapentin 400 Mg Cap) 400 mg PO TID [facility] Last Admin: 05/09/20 08:27 Dose: 400 mg Documented by: Piperacillin Sod/Tazobactam (Sod 3.375 gm/ Sodium Chloride) 100 mls @ 25 mls/hr IVPB Q8H [facility] Last Admin: 05/09/20 13:02 Dose: 25 mls/hr Documented by: Lacosamide (Lacosamide 50 Mg Tablet) 100 mg PO BID [facility] Last Admin: 05/09/20 08:27 Dose: 100 mg Documented by: Levetiracetam (Levetiracetam 500 Mg Tab) 500 mg PO Q12HR [facility] Last Admin: 05/09/20 08:27 Dose: 500 mg Documented by: Methyl Salicylate (Methyl Salicylate/Menthol Cream 5 Oz) 1 applic TOPICAL HS [facility] Last Admin: 05/08/20 19:57 Dose: 1 applic Documented by: Miscellaneous Information (Potassium Replacement Protocol 1 Each Misc) 1 each MISCELLANE DAILY PRN; Protocol PRN Reason: Per Protocol Naloxone HCl (Naloxone 0.4 Mg/Ml 1 Ml Vial) 0.2 mg IV Q2M PRN PRN Reason: Opioid Reversal Pravastatin Sodium (Pravastatin Sodium 20 Mg Tab) 20 mg PO [facility] Last Admin: 05/08/20 21:16 Dose: 20 mg Documented by: Senna (Sennosides 8.6 Mg Tab) 17.2 mg PO [facility] Last Admin: 05/08/20 19:54 Dose: 17.2 mg Documented by: Sodium Chloride (Sodium Chloride Tab 1 Gm Tab) 1 gm PO BID [facility] Last Admin: 05/09/20 08:27 Dose: 1 gm Documented by: Zinc Sulfate (Zinc Sulfate 220 Mg Cap) 220 mg PO DAILY [facility] Last Admin: 05/09/20 08:27 Dose: 220 mg Documented by: Objective - Vital Signs Vital signs: Vital Signs Temp 98.2 F 05/09/20 11:00 Pulse 125 H 05/09/20 11:00 Resp 22 05/09/20 11:00 BP 179/70 05/09/20 11:00 Pulse Ox 92 L 05/09/20 11:22 Intake & Output 05/08/20 05/09/20 05/09/20 18:59 06:59 18:59 Other: Voiding Method Diaper Diaper Diaper Incontinent Incontinent Incontinent # Voids 1 4 # Bowel Movements 1 2 - Exam GENERAL: The patient is alert and oriented x2, not in any acute distress. Anxious at times. Well developed, well nourished. Extremely Lethargic although arousable. Temp is 98.2F, pulse is 125, respirations are 22, blood pressure is 179/70, oxygen saturation is 91% on high flow Airvo with a flow rate of 60 and an FiO2 of 91. HEENT: Pupils are round and equally reacting to light. EOMI. No scleral icterus. No conjunctival pallor. Normocephalic, atraumatic. No pharyngeal erythema. No thyromegaly. CARDIOVASCULAR: S1 and S2 muffled PULMONARY: Diminished breath sounds bilaterally with scattered rhonchi noted ABDOMEN: Soft, nontender, nondistended, normoactive bowel sounds. No palpable organomegaly. MUSCULOSKELETAL: No joint swelling or deformity. EXTREMITIES: No cyanosis, clubbing, or pedal edema. NEUROLOGICAL: Gross neurological examination did not reveal any new focal deficits. Does have weakness in the right side with right-sided facial droop from her previous stroke SKIN: No rashes. - Labs CBC & Chem 7: 05/09/20 12:24 05/09/20 06:20 Labs: Abnormal Lab Results - Last 24 Hours (Table) 05/08/20 05/08/20 05/09/20 Range/Units 07:01 15:05 06:20 WBC (3.8-10.6) k/uL Neutrophils # (1.3-7.7) k/uL Lymphocytes # (1.0-4.8) k/uL Sodium 132 L (135-145) mmol/L Potassium 3.1 L (3.5-5.1) mmol/L Carbon Dioxide 16.7 L (21.6-31.8) mmol/L Anion Gap 15.30 H (4.00-12.00) mmol/L BUN 8.0 L (9.0-27.0) mg/dL BUN/Creatinine Ratio 11.43 L (12.00-20.00) Ratio Procalcitonin 0.33 H (0.02-0.09) ng/mL 05/09/20 Range/Units 12:24 WBC 12.8 H (3.8-10.6) k/uL Neutrophils # 12.0 H (1.3-7.7) k/uL Lymphocytes # 0.4 L (1.0-4.8) k/uL Sodium (135-145) mmol/L Potassium (3.5-5.1) mmol/L Carbon Dioxide (21.6-31.8) mmol/L Anion Gap (4.00-12.00) mmol/L BUN (9.0-27.0) mg/dL BUN/Creatinine Ratio (12.00-20.00) Ratio Procalcitonin (0.02-0.09) ng/mL Microbiology - Last 24 Hours (Table) 05/05/20 02:47 Blood Culture - Preliminary Blood No Growth after 96 hours 05/05/20 02:47 Blood Culture - Preliminary Blood No Growth after 96 hours Assessment and Plan Assessment: -Acute hypoxic respiratory failure: Secondary to Covid 19 -Hypovolemic hyponatremia -Elevated d-dimer -Elevated LDH, pro-calcitonin -Hypokalemia -Hyponatremia -Cerebrovascular accident in the past, with chronic weakness in the right side -Seizure disorder -Depression -DVT prophylaxis -No code, no CPR, no vent Plan: Continue current medications. Patient received 1 unit of convalescent plasma. Patients respiratory status continued to decline and requiring more oxygen and patient is now on Airvo. No improvement in chest x-ray from previous. Patient being started on IV Zosyn and will continue with dexamethasone, Lovenox, vitamin C&D, and zinc supplements. Inflammatory markers also trending up Given patient's multiple comorbidities and complex medical issues, prognosis is extremely poor and guarded. Will discuss treatment plan with family. Will repeat a.m. labs. Further recommendations to follow.
[2020-05-09] MEDS ORDERED: ALPRAZolam 0.25 MG TAB PO PRN (16:21)
[2020-05-09] MEDS: ALPRAZolam 0.25 MG TAB PO PRN (16:24)
[2020-05-09 17:39] LABS: Glucose,Whole Blood 124 mg/dL (75-99)
[2020-05-09 21:29] VITALS: BP 172/99; RESP 22; TEMP 99.4
[2020-05-09] MEDS: PRAVASTATIN SODIUM 20 MG TAB PO SCH (21:39)
[2020-05-09] MEDS: SENNOSIDES 8.6 MG TAB PO SCH (21:40)
[2020-05-09] MEDS: METHYL SALICYLATE/MENTHOL CREAM 5 OZ TOPICAL SCH (22:03)
[2020-05-09 23:47] LABS: Glucose,Whole Blood 107 mg/dL (75-99)
[2020-05-09] MEDS ORDERED: IPRATROPIUM-ALBUTEROL 3 ML NEB ONE (23:56)
[2020-05-10] MEDS ORDERED: IPRATROPIUM-ALBUTEROL 3 ML NEB INHALATION STA (00:02)
[2020-05-10] MEDS ORDERED: BUDESONIDE 1 MG/2 ML NEBU INHALATION STA (00:02)
[2020-05-10 00:15] VITALS: PULSE 112
== END 2020-05-10 04:58 | disposition expired | DRG 177 ==
LOC: EC 02:19 → 6NMEDSUR 05:49
PROVIDERS: ADMIT Hospitalist; ATTEND Hospitalist
PROC: 5A0945A Assistance with Respiratory Ventilation, 24-96 Consecutive Hours, High Flow/Velocity Cannula (ICD-10-PCS; principal; 2020-05-06)
PROC: XW13325 Transfusion of Convalescent Plasma (Nonautologous) into Peripheral Vein, Percutaneous Approach, New Technology Group 5 (ICD-10-PCS; 2020-05-07)
PROC: 05HA33Z Insertion of Infusion Device into Left Brachial Vein, Percutaneous Approach (ICD-10-PCS; 2020-05-08)
DX: U07.1 COVID-19 (principal); J12.82 Pneumonia due to coronavirus disease 2019; J96.01 Acute respiratory failure with hypoxia; I69.351 Hemiplegia and hemiparesis following cerebral infarction affecting right dominant side; E87.1 Hypo-osmolality and hyponatremia; Z66 Do not resuscitate; I10 Essential (primary) hypertension; G89.29 Other chronic pain; I69.392 Facial weakness following cerebral infarction; G40.909 Epilepsy, unspecified, not intractable, without status epilepticus; F32.9 Major depressive disorder, single episode, unspecified; D72.810 Lymphocytopenia; E86.1 Hypovolemia; E87.6 Hypokalemia; R79.1 Abnormal coagulation profile; R74.01 Elevation of levels of liver transaminase levels; F03.90 Unspecified dementia, unspecified severity, without behavioral disturbance, psychotic disturbance, mood disturbance, and anxiety; R00.0 Tachycardia, unspecified; R53.81 Other malaise; R26.9 Unspecified abnormalities of gait and mobility; Z74.01 Bed confinement status; Z79.82 Long term (current) use of aspirin; Z79.899 Other long term (current) drug therapy; Z87.891 Personal history of nicotine dependence
CPT/HCPCS: 36410; 36415; 71045; 76937; 80048; 80053; 82728; 83605; 83615; 83735; 83880; 84132; 84145; 85025; 85379; 85610; 85730; 86140; 86850; 86900; 86901; 87040; 93005; 94640; 94760; 96360; 99285